=== PATIENT | female | born 1930 | race Caucasian/White ===

== ENCOUNTER 2018-01-30 02:42 | Emergency (ER) | payer BC, MEDICARE ==
[~2018-01-30] VITALS: Ht 142.2 cm; Wt 63.5 kg
[2018-01-30 02:48] VITALS: BP 171/75
== END 2018-01-30 03:39 | disposition home or self-care (01) ==
LOC: ER 02:46
DX: S00.03XA Contusion of scalp, initial encounter (principal); I10 Essential (primary) hypertension; Z90.710 Acquired absence of both cervix and uterus; Y04.2XXA Assault by strike against or bumped into by another person, initial encounter; Y93.89 Activity, other specified; Y92.098 Other place in other non-institutional residence as the place of occurrence of the external cause; Y99.8 Other external cause status
CPT/HCPCS: 70450-TC; A4606; Z7610

== ENCOUNTER 2020-08-28 15:18 | Inpatient (IN) | payer MEDICARE, BC ==
[~2020-08-28] VITALS: Ht 132.1 cm; Wt 64.0 kg
--- NOTE | 2020-08-28 15:25 | NUR ---
BIB RA 83 FROM HOME, WEAKNESS AND LOW BP OF 90/40, TO ER BED 10, HOOKED TO PLANNING MANAGER, BP CUFF AND POX. CHANGED TO HOSP GOWN, WARM BLANKET PROVIDED, PATIENT AAO x 4 , BREATHING EVEN AND UNLABORED, NAD NOTED. AWAITING MD BOLANOS.
--- NOTE | 2020-08-28 15:26 | NUR ---
DR BECKETT AT BEDSIDE
[2020-08-28] MEDS ORDERED: IV NS 0.9% 1,000 ML IV ONE (15:30)
[2020-08-28 16:55] LABS: BASOPHILS # (AUTO) 0.1 /CMM (0.0-0.2); BASOPHILS % (AUTO) 0.8 % (0.0-2.0); HEMATOCRIT 26 % (33-45); HEMOGLOBIN 7.9 g/dL (11.5-14.8); LYMPHOCYTES # (AUTO) 0.1 /CMM (0.8-4.8); MEAN CORPUSCULAR HGB CONC 31 g/dl (31.0-36.0); MEAN CORPUSCULAR VOLUME 94 fL (82-100); MONOCYTES % (AUTO) 0.5 % (2.0-12.0); NEUTROPHILS # (AUTO) 9.9 /CMM (1.8-8.9); NEUTROPHILS % (AUTO) 96.7 % (43.0-81.0); PLATELET COUNT (AUTO) 220 /CMM (150-450); RED BLOOD CELL COUNT(AUTO) 2.74 MIL/uL (4.0-5.2); WHITE BLOOD COUNT (AUTO) 10.3 K/uL (4.3-11.0)
[2020-08-28 17:33] LABS: ALANINE AMINOTRANSFERASE 31 U/L (12-78); ALKALINE PHOSPHATASE 183 U/L (46-116); ASPARTATE AMINOTRANSFERASE 57 U/L (15-37); B-TYPE NATRIURETIC PEPTIDE 26613 PG/ML (0-125); BILIRUBIN,TOTAL 0.4 mg/dL (0.2-1.0); CALCIUM, SERUM 7.2 mg/dL (8.5-10.1); CARBON DIOXIDE 13 mmol/L (21-32); CHLORIDE 104 mmol/L (98-107); CREATININE 4.6 mg/dL (0.6-1.3); GLUCOSE 65 mg/dL (74-106); POTASSIUM 4.9 mmol/L (3.5-5.1); SODIUM SERUM 137 mmol/L (136-145); TOTAL PROTEIN, SERUM 5.1 g/dL (6.4-8.2)
[2020-08-28 17:50] LABS: ALBUMIN 0.6 g/dL (3.4-5.0); UREA NITROGEN, BLOOD 89 mg/dL (7-18)
[2020-08-28] MEDS ORDERED: OLME40TA12 PO (17:53)
[2020-08-28] MEDS ORDERED: FERR325T23 PO (17:53)
[2020-08-28] MEDS ORDERED: RIVA10TA PO (17:53)
[2020-08-28] MEDS ORDERED: ESOM20CA32 PO (17:53)
[2020-08-28] MEDS ORDERED: CEFTRIAXONE 1GM BAG (ER ONLY) 1 GM/50 ML PIGGYBACK IV ONE (18:00)
--- NOTE | 2020-08-28 18:03 | NUR ---
[facility] CALLED [facility]AGED.
[2020-08-28] MEDS ORDERED: AZITHROMYCIN 500 MG in IV D5W 250 ML IV ONE (18:30)
[2020-08-28 18:35] LABS: BILIRUBIN,DIRECT 0.3 mg/dL (0.0-0.2)
[2020-08-28] MEDS ORDERED: CEFTRIAXONE 1GM BAG (ER ONLY) 50 ML IV ONE (18:41)
--- NOTE | 2020-08-28 18:55 | NUR ---
COVID 19 PCR SWAB DONE AND SENT TO LAB.
[2020-08-28] MEDS ORDERED: PANTOPRAZOLE 40 MG TABLET.DR PO PRN (19:00)
--- NOTE | 2020-08-28 19:17 | NUR ---
MD MADE AWARE OF BP. RECEIVED VERBAL ORDER OF 1L NS BOLUS. CARRIED OUT
[2020-08-28] MEDS ORDERED: ONDANSETRON HCL/PF 4 MG/2 ML VIAL IVP PRN (19:30)
[2020-08-28] MEDS ORDERED: MAGNESIUM HYDROXIDE 30 ML UDC PO PRN (19:30)
[2020-08-28] MEDS ORDERED: Z GUARD REMEDY 2 OZ OINT TP PRN (19:30)
[2020-08-28] MEDS ORDERED: MAG HYDROX/AL HYDROX/SIMETH 30 ML UDC PO PRN (19:30)
[2020-08-28] MEDS ORDERED: HYDROCODONE/APAP 5/325MG TABLET PO PRN (19:30)
[2020-08-28] MEDS ORDERED: IV NS 0.9% 500 ML BAG IV ONE (19:30)
[2020-08-28] MEDS ORDERED: HEPARIN INFUSION/D5W 500 ML IV PRN (19:30)
[2020-08-28] MEDS ORDERED: ACETAMINOPHEN 325 MG TABLET PO PRN (19:30)
--- NOTE | 2020-08-28 19:33 | NUR ---
REPORT GIVEN TO CHRIS WHITNEY FOR RAMY
[2020-08-28] MEDS: IV NS 0.9% 1,000 ML IV PRN (21:00)
[2020-08-28] MEDS ORDERED: ASPIRIN 325 MG TABLET ONE (21:32)
[2020-08-28] MEDS: ASPIRIN 325 MG TABLET PO SCH (21:35)
--- NOTE | 2020-08-28 21:52 | NUR ---
PT RESTING COMFORTABLY. VSS. PROVIDED WITH SOCKS, BLANKETS, AND A PILLOW. AWARE OF PLAN OF CARE. VSS.
[2020-08-28] MEDS: BLOOD SUGAR DIAGNOSTIC 1 EACH STRIP VI SCH (22:00)
--- NOTE | 2020-08-29 00:22 | NUR ---
PT ASLEEP NOW, PROVIDED WITH MORE BLANKETS. REPOSITIONED TO THE RIGHT.
--- NOTE | 2020-08-29 01:31 | NUR ---
PT ASLEEP, VSS.
--- NOTE | 2020-08-29 03:45 | NUR ---
PT ASLEEP, PROVIDED WITH BLANKETS.
--- NOTE | 2020-08-29 04:43 | NUR ---
MUSIC ENGINEER AT BEDSIDE.
[2020-08-29 05:23] LABS: BASOPHILS % (AUTO) 0.1 % (0.0-2.0); EOSINOPHILS % (AUTO) 0.8 % (0.0-6.0); HEMATOCRIT 23 % (33-45); HEMOGLOBIN 7.2 g/dL (11.5-14.8); LYMPHOCYTES # (AUTO) 0.2 /CMM (0.8-4.8); LYMPHOCYTES % (AUTO) 2.4 % (20.0-44.0); MEAN CORPUSCULAR HGB CONC 32 g/dl (31.0-36.0); MEAN CORPUSCULAR VOLUME 92 fL (82-100); MONOCYTES # (AUTO) 0.1 /CMM (0.1-1.30); MONOCYTES % (AUTO) 1.2 % (2.0-12.0); NEUTROPHILS # (AUTO) 8.5 /CMM (1.8-8.9); NEUTROPHILS % (AUTO) 95.5 % (43.0-81.0); PLATELET COUNT (AUTO) 203 /CMM (150-450); RED BLOOD CELL COUNT(AUTO) 2.46 MIL/uL (4.0-5.2); WHITE BLOOD COUNT (AUTO) 8.9 K/uL (4.3-11.0)
[2020-08-29 05:35] LABS: ALANINE AMINOTRANSFERASE 29 U/L (12-78); ALKALINE PHOSPHATASE 174 U/L (46-116); ASPARTATE AMINOTRANSFERASE 52 U/L (15-37); BILIRUBIN,DIRECT 0.2 mg/dL (0.0-0.2); BILIRUBIN,TOTAL 0.3 mg/dL (0.2-1.0); CALCIUM, SERUM 6.4 mg/dL (8.5-10.1); CARBON DIOXIDE 13 mmol/L (21-32); CHLORIDE 109 mmol/L (98-107); CREATININE 4.3 mg/dL (0.6-1.3); GLUCOSE 97 mg/dL (74-106); MAGNESIUM 1.3 mg/dL (1.8-2.4); PHOSPHORUS 6.8 mg/dL (2.5-4.9); POTASSIUM 4.7 mmol/L (3.5-5.1); SODIUM SERUM 138 mmol/L (136-145); TOTAL PROTEIN, SERUM 4.6 g/dL (6.4-8.2)
[2020-08-29 05:51] LABS: ALBUMIN 0.5 g/dL (3.4-5.0); UREA NITROGEN, BLOOD 85 mg/dL (7-18)
[2020-08-29 05:59] LABS: CHOLESTEROL 133 mg/dL (<200); HDL CHOLESTEROL 13 mg/dL (40-60); LDL 80 mg/dL (0-99); TRIGLYCERIDES 117 mg/dL (30-150)
[2020-08-29 06:02] LABS: IRON, SERUM 20 ug/dl (50-175); TOTAL IRON BINDING CAPACITY 53 ug/dl (250-450)
--- NOTE | 2020-08-29 06:44 | NUR ---
PT REPOSITIONED, PROVIDED WITH MORE BLANKETS AND PILLOW. VSS.
--- NOTE | 2020-08-29 07:45 | NUR ---
PATIENT A/OX4, BREATHING EVEN AND UNLABORED, NOS OB NOTED, NEEDS ATTENDED. NO DISTRESS NOTED.
[2020-08-29] MEDS: BLOOD SUGAR DIAGNOSTIC 1 EACH STRIP VI SCH ×4 (07:55→22:23)
[2020-08-29] MEDS: ASPIRIN 325 MG TABLET PO SCH (08:35)
[2020-08-29] MEDS ORDERED: RIVAROXABAN 10 MG TABLET PO SCH (09:00)
[2020-08-29] MEDS: IV NS 0.9% 1,000 ML IV PRN (12:05)
--- NOTE | 2020-08-29 12:30 | NUR ---
PATIENT ABLE TO EAT BREAKFAST AND LUNCH. NO DISTRESS NOTED.
[2020-08-29] MEDS: Magnesium 1GM/D5W 100ML PREMIX 100 ML IV SCH ×2 (12:35→13:40)
--- NOTE | 2020-08-29 18:21 | NUR ---
MARC HANNA MADE AWARE OF LOW BLOOD PRESSURE.
--- NOTE | 2020-08-29 19:43 | NUR ---
TOOK OVER PT CARE. PT REMAINS IN BED, RESTING COMFORTABLY. ON ACCOUNT RETENTION REPRESENTATIVE AND PULSE OX. VITALS STABLE. PT WAS PLACED ON 2L NC, NOW SAT 93-95%. PT WAS REPOSITIONED TO THE RIGHT. CALL LIGHT AT BEDSIDE. NO ACUTE DISTRESS NOTED. WILL CONTINUE TO MONITOR. PT AWARE OF PLAN OF CARE.
--- NOTE | 2020-08-29 20:43 | NUR ---
LAB CALLED REGARDING NEGATIVE COVID RESULT
[2020-08-29] MEDS ORDERED: HEPARIN SODIUM, PORCINE 5000 UNITS/1 ML VIAL ONE (21:30)
[2020-08-29] MEDS: HEPARIN SODIUM, PORCINE 5000 UNITS/1 ML VIAL SQ SCH (21:31)
--- NOTE | 2020-08-30 01:37 | NUR ---
PT RESTING COMFORTABLY, ON MONITOR AND PULSE OX. VSS.
--- NOTE | 2020-08-30 05:19 | NUR ---
PT RESTING COMFORTABLY. VSS. REMAINS ASLEEP.
[2020-08-30 05:31] LABS: CALCIUM, SERUM 6.9 mg/dL (8.5-10.1); CARBON DIOXIDE 13 mmol/L (21-32); CHLORIDE 110 mmol/L (98-107); CREATININE 4.5 mg/dL (0.6-1.3); GLUCOSE 78 mg/dL (74-106); POTASSIUM 4.6 mmol/L (3.5-5.1); SODIUM SERUM 140 mmol/L (136-145)
[2020-08-30 05:36] LABS: UREA NITROGEN, BLOOD 90 mg/dL (7-18)
--- NOTE | 2020-08-30 07:00 | NUR ---
PT ASLEEP, VSS.
--- NOTE | 2020-08-30 08:01 | NUR ---
interventional radiology rn at bedside for JORDEN
[2020-08-30] MEDS: BLOOD SUGAR DIAGNOSTIC 1 EACH STRIP VI SCH ×4 (08:31→22:10)
--- NOTE | 2020-08-30 09:27 | NUR ---
DR CROWE AT BEDSIDE
[2020-08-30] MEDS: ASPIRIN 325 MG TABLET PO SCH (09:46)
[2020-08-30] MEDS: HEPARIN SODIUM, PORCINE 5000 UNITS/1 ML VIAL SQ SCH (09:54)
[2020-08-30] MEDS: HYDROCORTISONE SOD SUCCINATE 100 MG/2 ML VIAL IV SCH ×2 (11:51→19:00)
--- NOTE | 2020-08-30 12:57 | NUR ---
PATIENT PROVIDED W LUNCH TRAY. TOLERATING PO WELL.
[2020-08-30] MEDS: SODIUM BICARBONATE 650 MG TABLET PO SCH ×2 (13:52→20:56)
--- NOTE | 2020-08-30 17:25 | NUR ---
MADE MARC HANNA AWARE OF PATIENT'S POSITIVE DVT AT RIGHT AND LEFT GSV, L CFV AND L SFV. AWAITING FURTHER ORDERS
--- NOTE | 2020-08-30 17:50 | NUR ---
SPOKE TO DR AU FOR PATIENT'S VENOUS DOPPLER REPORT.
--- NOTE | 2020-08-30 18:26 | NUR ---
CALL FROM JAKOB MONTERROSO, NO PLAN TO D/C PATIENT AT THIS TIME
[2020-08-30] MEDS: APIXABAN 5 MG TABLET PO SCH (19:00)
--- NOTE | 2020-08-30 19:41 | NUR ---
REPORT GIVEN TO CHRIS WHITNEY FOR RAMY
--- NOTE | 2020-08-30 19:47 | NUR ---
TOOK OVER PT CARE. PT REPOSITIONED, ON GANG RIPSAW OPERATOR, AND PULSE OX. WILL CONTINUE TO MONITOR.
[2020-08-30] MEDS ORDERED: HYDROCORTISONE SOD SUCCINATE 100 MG/2 ML VIAL ONE (20:08)
--- NOTE | 2020-08-30 22:02 | NUR ---
PATIENT HAD A BM. CHANGED BED SHEETS AND CHUCKS.
--- NOTE | 2020-08-30 22:29 | NUR ---
PT CLEANED AND REPOSITIONED, VSS.
--- NOTE | 2020-08-31 02:47 | NUR ---
PT REMAINS ASLEEP, ON MONITOR AND PULSE OX.
[2020-08-31] MEDS: HYDROCORTISONE SOD SUCCINATE 100 MG/2 ML VIAL IV SCH ×3 (03:11→20:56)
--- NOTE | 2020-08-31 04:05 | NUR ---
SPOKE TO YESENIA (PT'S DAUGHTER IN LAW) STATED TO HAVE THE MD TAKE A LOOK AT THE LEFT FOOT AND HAVE A WOUND CARE CONSULTATION. ALSO STATED LAST FRIDAY SHE HAD VITSITED A WOUND CENTER AND WAS TOLD TO COME BACK Friday08/29/2020.
--- NOTE | 2020-08-31 05:12 | NUR ---
PT CLEANED, PROVIDED WITH MORE BLANKETS, REPOSITIONED. VSS.
--- NOTE | 2020-08-31 06:32 | NUR ---
PT CLEANED, REPOSITIONED, REMAINS ON SHREDDING MACHINE TENDER, AND PULSE OX. VSS.
[2020-08-31] MEDS: IV NS 0.9% 1,000 ML IV PRN (07:00)
[2020-08-31] MEDS: BLOOD SUGAR DIAGNOSTIC 1 EACH STRIP VI SCH ×4 (07:31→23:54)
--- NOTE | 2020-08-31 07:40 | NUR ---
REPORT GIVEN TO BA WHITNEY FOR RAMY
[2020-08-31 08:10] LABS: BASOPHILS % (AUTO) 0.5 % (0.0-2.0); EOSINOPHILS % (AUTO) 0.1 % (0.0-6.0); HEMATOCRIT 23 % (33-45); HEMOGLOBIN 7.4 g/dL (11.5-14.8); LYMPHOCYTES # (AUTO) 0.2 /CMM (0.8-4.8); MEAN CORPUSCULAR HGB CONC 32 g/dl (31.0-36.0); MEAN CORPUSCULAR VOLUME 91 fL (82-100); MONOCYTES # (AUTO) 0.1 /CMM (0.1-1.30); MONOCYTES % (AUTO) 1.6 % (2.0-12.0); NEUTROPHILS # (AUTO) 7.8 /CMM (1.8-8.9); NEUTROPHILS % (AUTO) 95.8 % (43.0-81.0); PLATELET COUNT (AUTO) 161 /CMM (150-450); RED BLOOD CELL COUNT(AUTO) 2.53 MIL/uL (4.0-5.2); WHITE BLOOD COUNT (AUTO) 8.2 K/uL (4.3-11.0)
[2020-08-31] MEDS: SODIUM BICARBONATE 650 MG TABLET PO SCH ×2 (08:12→23:54)
[2020-08-31] MEDS: APIXABAN 5 MG TABLET PO SCH ×2 (08:12→17:00)
[2020-08-31] MEDS: ASPIRIN 325 MG TABLET PO SCH (08:12)
[2020-08-31 08:20] LABS: ALANINE AMINOTRANSFERASE 32 U/L (12-78); ALKALINE PHOSPHATASE 307 U/L (46-116); ASPARTATE AMINOTRANSFERASE 31 U/L (15-37); BILIRUBIN,TOTAL 0.3 mg/dL (0.2-1.0); CALCIUM, SERUM 7.3 mg/dL (8.5-10.1); CARBON DIOXIDE 13 mmol/L (21-32); CHLORIDE 110 mmol/L (98-107); CREATININE 4.7 mg/dL (0.6-1.3); GLUCOSE 106 mg/dL (74-106); MAGNESIUM 1.9 mg/dL (1.8-2.4); POTASSIUM 5.4 mmol/L (3.5-5.1); SODIUM SERUM 141 mmol/L (136-145)
[2020-08-31 09:00] LABS: UREA NITROGEN, BLOOD 100 mg/dL (7-18)
[2020-08-31 09:01] LABS: ALBUMIN 0.5 g/dL (3.4-5.0)
--- NOTE | 2020-08-31 09:10 | NUR ---
WOUND CARE CONSULT: PT PRESENTS WITH LEFT LOWER LEG WOUND AND INTACT DEEP TISSUE INJURY TO LEFT HEEL WITH REDNESS AND EDEMA TO ENTIRE LEFT LEG, PRESENT ON ADMISSION. RECOMMEND DPM CONSULT. DR SHI NOTIFIED OF CONSULT REQUEST. RECOMMENDATIONS MADE FOR SKIN PROTECTION. DISCUSSED WITH NURSING STAFF. COBAN WRAP WAS REMOVED BY WOUND NURSE (BANK CONSULTANT). PT NOTED TO BE INCONTINENT OF LOOSE STOOL. PT WAS CLEANSED WELL WITH SOAP AND WATER BY NURSING STAFF. IN AGREEMENT WITH PLAN OF CARE. Addendum: 08/31/20 at 0912 by JUAREZ OCONNOR WNDNU Amended: Links added.
--- NOTE | 2020-08-31 16:21 | NUR ---
PATIENT WILL GO TO RM 306-1
--- NOTE | 2020-08-31 17:00 | NUR ---
pt transferred to room 306, bedside report given to crow tucker for jeanie Addendum: 08/31/20 at [address] lucila hendrickson will place the dialysis cath when pt goes up to the room.
[2020-08-31 18:00] VITALS: BP 116/59
--- NOTE | 2020-08-31 18:30 | NUR ---
DR. MARC HANNA PLACED RIGHT GROIN HD CATH. Patient is resting in bed, A/O x4, showing no signs of acute distress sor SOB, saturating 92% on 4L NC. BP 116/59 HR 84. Will endorse to vice president of human resources for admitting process.
--- NOTE | 2020-08-31 20:51 | NUR ---
TELE/RN DURING SHIFT ROUNDING, PATIENT WAS IN BED AWAKE, ALERT, ORIENTED, COMFORTABLE, NO C/O PAIN, NO DISTRESS NOTED. S/P HD CATH PLACEMENT, BLEEDING AT HD CATH SITE NOTED, PRESSURE APPLIED AT SITE, REENFORCED THE DRESSING. NO BLEEDING NOTED AT THIS TIME, WILL MONITOR. ALL NEEDS ATTENDED AT THIS TIME.
[2020-08-31] MEDS ORDERED: SODIUM BICARBONATE 650 MG TABLET ONE (23:34)
--- NOTE | 2020-09-01 00:58 | NUR ---
TELE/RN PATIENT IS SLEEPING AT THIS TIME, APPEAR COMFORTABLE, NO SIGNS OF DISTRESS NOTED, CALL LIGHT IN REACH, WILL CONTINUE TO MONITOR.
[2020-09-01] MEDS: HYDROCORTISONE SOD SUCCINATE 100 MG/2 ML VIAL IV SCH ×3 (03:38→19:14)
[2020-09-01] MEDS: IV NS 0.9% 1,000 ML IV PRN ×2 (04:05→19:17)
[2020-09-01 06:06] LABS: COMPLEMENT C3, SERUM 70 mg/dL (82-167); COMPLEMENT C4, SERUM 10 mg/dL (12-38)
--- NOTE | 2020-09-01 07:28 | NUR ---
IMPROVEMENT ANALYST OPENING NOTES RECEIVED PT AWAKE IN BED IN NO ACUTE SIGNS OF DISTRESS NOTED. A/O X2. CALM, QUIET AT THIS TIME AND ABLE TO MAKE NEEDS KNOWN, DENIES PAIN OR ANY DISCOMFORTS. ON 02 VIA N/C AT 4LPM, TOLERATING WELL WITH NO SOB NOTED. HD CATH ON RIGHT GROIN IN PLACE WITH DRESSING C/D/I. EXTERNAL MONITOR SHOWS NSR WITH HR ON THE 70'S, NO C/O CARDIAC DISTRESS VOICED AT THIS TIME. IV ACCESS ON LAC G#20 INTACT AND PATENT WITH IVF OF NS RUNNING AT 75ML/HR, NO S/S OF INFILTRATION AT SITE NOTED. SAFETY MEASURES IN PLACE: BED IN LOWEST LOCKED POSITION WITH SR UP X2, BED ALARM ON AND CALL LIGHT W/IN EASY REACH. WILL CONTINUE TO MONITOR PT.
--- NOTE | 2020-09-01 07:37 | NUR ---
TELE/RN PATIENT IS AWAKE, ALERT, ORIENTED WITH CONFUSION, NO DISTRESS NOTED, ON AND OFF SLEEP NOTED THE WHOLE SHIFT, ALL NEEDS ATTENDED AT THIS TIME, ENDORSED TO NEXT RN FOR CONTINUITY OF CARE.
[2020-09-01] MEDS: BLOOD SUGAR DIAGNOSTIC 1 EACH STRIP VI SCH ×4 (07:43→21:15)
[2020-09-01 08:00] VITALS: BP 79/41
[2020-09-01] MEDS: ASPIRIN 325 MG TABLET PO SCH (08:38)
[2020-09-01] MEDS: APIXABAN 5 MG TABLET PO SCH ×2 (08:39→17:33)
[2020-09-01] MEDS: SODIUM BICARBONATE 650 MG TABLET PO SCH ×2 (09:55→21:14)
--- NOTE | 2020-09-01 11:18 | NUR ---
RN NOTES PT SEEN BY KRISS IZAGUIRRE, INFORMED HER THAT I ADMINISTERED MORPHINE 2MG IVP AT 0946. SHE SAID THAT ADMINISTER ANOTHER 2 MG IVP THEN SHE WILL PUT PT ON MORPHINE DRIP LATER. ORDER CARRIED OUT. WILL CONTINUE TO MONITOR.
[2020-09-01] MEDS: INSULIN REGULAR, HUMAN 100 UNIT/ML 3 ML VIAL SQ PRN ×2 (11:43→17:19)
[2020-09-01 12:00] VITALS: BP 135/44
--- NOTE | 2020-09-01 15:45 | NUR ---
RN NOTES PATIENT ON HEMODIALYSIS RIGHT TO RIGHT FEMORAL HD CATHETER.
[2020-09-01 16:00] VITALS: BP 102/77
[2020-09-01] MEDS ORDERED: ALBUMIN 25% 25 GM in PREMIX 1 EA IV PRN (16:00)
--- NOTE | 2020-09-01 18:15 | NUR ---
RN NOTES HEMODIALYSIS FINISHED AND TOLERATED WELL. NO OUTPUT MADE PER DIALYSIS NURSE. WILL CONTINUE TO MONITOR.
--- NOTE | 2020-09-01 18:54 | NUR ---
POLICE OFFICER CLOSING NOTES PT IN BED ASLEEP AT THIS TIME, EASILY AROUSABLE, HOB ELEVATED. A/O X2-3. ABLE TO MAKE NEEDS KNOWN. ON 02 VIA N/C AT 4LPM, TOLERATING WELL WITH NO SOB NOTED. HD CATH ON RIGHT GROIN IN PLACE WITH DRESSING C/D/I. EXTERNAL MONITOR SHOWS NSR WITH HR ON THE 70'S, NO C/O CARDIAC DISTRESS VOICED AT THIS TIME. IV ACCESS ON LAC G#20 INTACT AND PATENT WITH IVF OF NS RUNNING AT 75ML/HR, NO S/S OF INFILTRATION AT SITE NOTED. PT TURNED AND REPOSITIONED Q 2HRS AND PRN. ALL NEEDS AND CARE PROVIDED WELL. SAFETY MEASURES KEPT IN PLACE: BED IN LOWEST LOCKED POSITION WITH SR UP X2, BED ALARM ON AND CALL LIGHT W/IN EASY REACH. WILL ENDORSE TO BRICK MACHINE OPERATOR NURSE FOR RAMY.
[2020-09-01 20:00] VITALS: BP 129/77
[2020-09-02] VITALS (10 sets, daily range): BP systolic 85–112; BP diastolic 41–58
[2020-09-02] MEDS: HYDROCORTISONE SOD SUCCINATE 100 MG/2 ML VIAL IV SCH ×3 (02:41→21:51)
[2020-09-02] MEDS: BLOOD SUGAR DIAGNOSTIC 1 EACH STRIP VI SCH ×4 (06:31→22:08)
--- NOTE | 2020-09-02 06:40 | NUR ---
RN CLOSING NOTES Pt asleep on bed. No complaints made at this time. Medicated for pain, noted effective. Due meds given as ordered. Kept on bed clean, dry and comfortable. On fall and aspiration precautions. Endorsed.
--- NOTE | 2020-09-02 07:27 | NUR ---
KNITTING MACHINE OPERATOR OPENING NOTES RECEIVED PT IN BED AWAKE, A/O X2-3. ABLE TO MAKE NEEDS KNOWN, DENIES PAIN OR ANY DISCOMFORTS AT THIS TIME. ON 02 VIA N/C AT 4LPM, TOLERATING WELL WITH NO SOB NOTED. HD CATH ON RIGHT GROIN IN PLACE WITH DRESSING C/D/I. EXTERNAL MONITOR SHOWS NSR WITH HR ON THE 70'S, NO C/O CARDIAC DISTRESS VOICED AT THIS TIME. IV ACCESS ON LAC G#20 INTACT AND PATENT WITH IVF OF NS INFUSING @ 75ML/HR, NO S/S OF INFILTRATION AT SITE NOTED. SAFETY MEASURES IN PLACE: HOB KEPT ELEVATED. BED IN LOWEST LOCKED POSITION WITH SR UP X2, BED ALARM ON AND CALL LIGHT W/IN EASY REACH. WILL CONTINUE TO MONITOR PT ACCORDINGLY.
[2020-09-02 07:34] LABS: ALANINE AMINOTRANSFERASE 32 U/L (12-78); ALKALINE PHOSPHATASE 188 U/L (46-116); ASPARTATE AMINOTRANSFERASE 27 U/L (15-37); BILIRUBIN,TOTAL 0.4 mg/dL (0.2-1.0); CALCIUM, SERUM 7.5 mg/dL (8.5-10.1); CARBON DIOXIDE 22 mmol/L (21-32); CHLORIDE 107 mmol/L (98-107); CREATININE 2.6 mg/dL (0.6-1.3); GLUCOSE 96 mg/dL (74-106); MAGNESIUM 1.7 mg/dL (1.8-2.4); PHOSPHORUS 5.5 mg/dL (2.5-4.9); SODIUM SERUM 140 mmol/L (136-145); TOTAL PROTEIN, SERUM 4.6 g/dL (6.4-8.2); UREA NITROGEN, BLOOD 66 mg/dL (7-18)
[2020-09-02 07:36] LABS: ALBUMIN 1.1 g/dL (3.4-5.0)
[2020-09-02] MEDS: SODIUM BICARBONATE 650 MG TABLET PO SCH ×2 (08:31→21:57)
[2020-09-02] MEDS: ASPIRIN 325 MG TABLET PO SCH (08:31)
[2020-09-02] MEDS: APIXABAN 5 MG TABLET PO SCH (08:32)
[2020-09-02 09:06] LABS: BASOPHILS % (AUTO) 0.1 % (0.0-2.0); LYMPHOCYTES # (AUTO) 0.2 /CMM (0.8-4.8); LYMPHOCYTES % (AUTO) 2.5 % (20.0-44.0); MEAN CORPUSCULAR HGB CONC 33 g/dl (31.0-36.0); MEAN CORPUSCULAR VOLUME 90 fL (82-100); MONOCYTES # (AUTO) 0.1 /CMM (0.1-1.30); MONOCYTES % (AUTO) 2.1 % (2.0-12.0); NEUTROPHILS # (AUTO) 6.3 /CMM (1.8-8.9); NEUTROPHILS % (AUTO) 95.3 % (43.0-81.0); PLATELET COUNT (AUTO) 110 /CMM (150-450); RED BLOOD CELL COUNT(AUTO) 2.08 MIL/uL (4.0-5.2); WHITE BLOOD COUNT (AUTO) 6.6 K/uL (4.3-11.0)
[2020-09-02] MEDS: IV NS 0.9% 1,000 ML IV PRN (09:31)
[2020-09-02 09:40] LABS: HEMATOCRIT 19 % (33-45); HEMOGLOBIN 6.1 g/dL (11.5-14.8)
[2020-09-02] MEDS: Magnesium 1GM/D5W 100ML PREMIX 100 ML IV SCH ×2 (10:05→11:24)
--- NOTE | 2020-09-02 10:33 | NUR ---
RN NOTES RECEIVED CALL FROM PLOW AND BORING MACHINE TENDER [facility] THAT PT HAS LOW HGB 6.1 AND HCT 19, MADE AWARE WITH ORDER TO TRANSFUSED PRBC X1. CONSENT OBTAINED FROM PATIENT. WILL CARRY OUT ORDER.
[2020-09-02] MEDS: *INSULIN REGULAR(HUMULIN R)HUM 100 UNIT/ML VIAL SQ PRN (12:10)
[2020-09-02] MEDS ORDERED: EPOETIN ALFA (20,000 UNIT) 20,000 UNIT/ML VIAL SQ ONE (13:00)
[2020-09-02 13:08] LABS: *ANA ANTI-CENTROMERE B AB <0.2 AI (0.0-0.9); *ANA ANTI-DNA(DS) AB, QN <1 IU/mL (0-9); *ANA ANTI-JO-1 <0.2 AI (0.0-0.9); *ANA ANTICHROMATIN ANTIBODY 0.4 AI (0.0-0.9); *ANA RNP ANTIBODIES 0.2 AI (0.0-0.9); *ANA SJOGREN'S ANTI-SS-A <0.2 AI (0.0-0.9); *ANA SJOGREN'S ANTI-SS-B <0.2 AI (0.0-0.9); *ANAANTI-SCLERODERMA-70 AB <0.2 AI (0.0-0.9); *ANASMITH AB <0.2 AI (0.0-0.9)
[2020-09-02 13:28] LABS: LYMPHOCYTES % (MANUAL) 5 % (16-48); MONOCYTES % (MANUAL) 1 % (0-11.0); NEUTROPHILS % (MANUAL) 94 (42-76)
--- NOTE | 2020-09-02 15:30 | NUR ---
RN NOTES PT WITH HGB 6.1 TODAY. EPOGEN 20,000U ADMINISTERED SQ ORDERED. WILL CONTINUE TO MONITOR.
--- NOTE | 2020-09-02 15:42 | NUR ---
RN NOTES TYPE AND SCREEN DONE THIS MORNING. CALLED BLOOD BANK THIS AFTERNOON AND SPOKE TO JOSEF TO F/U WITH RBC UNITS. SHE STATED THAT THEY ARE STILL WAITING FOR THE 2ND BLOOD TYPE.
[2020-09-02] MEDS: APIXABAN 2.5 MG TABLET PO SCH (17:00)
--- NOTE | 2020-09-02 17:24 | NUR ---
RN NOTES BLOOD TRANSFUSION OF PRBC X1 STARTED VIA IV ACCESS ON LAC AND WAS VERIFIED BY ANOTHER RN VANDANA. PRE BLOOD TRANSFUSION V/S : BP 93/47, P 85, R 18 AND T 97.8F. WILL MONITOR FOR ANY ALLERGIC/ADVERSE REACTIONS.
[2020-09-02] MEDS: INSULIN REGULAR, HUMAN 100 UNIT/ML 3 ML VIAL SQ PRN (17:29)
--- NOTE | 2020-09-02 17:35 | NUR ---
RN NOTES PATIENT WITH NO ALLERGIC/ADVERSE REACTIONS NOTED AFTER 15MINUTES OF STARTING BLOOD TRANSFUSION. V/S CHEEKED AND RECORDED. WILL CONTINUE TO MONITOR.
--- NOTE | 2020-09-02 18:46 | NUR ---
MS RN CLOSING NOTES PT IN BED AWAKE AND LYING AT MODERATE HIGH BACKREST POSITION. A/O X 3. ABLE TO MAKE NEEDS KNOWN. ON 02 VIA N/C AT 4LPM, TOLERATING WELL WITH NO SOB NOTED DURING SHIFT. BLOOD TRANSFUSION ONGOING VIA LAC G#20 IV ACCESS, NO S/S OF INFILTRATION AT SITE NOTED. HD CATH ON RIGHT GROIN IN PLACE WITH DRESSING C/D/I. PT TURNED AND REPOSITIONED Q 2HRS AND PRN. ALL DUE NURSING CARE DONE AND MET. SAFETY MEASURES KEPT IN PLACE: BED IN LOWEST LOCKED POSITION WITH SR UP X2, BED ALARM ON AND CALL LIGHT W/IN EASY REACH. WILL ENDORSE TO VICTIM ADVOCATE NURSE FOR RAMY.
--- NOTE | 2020-09-02 19:40 | NUR ---
MS RN OPENING NOTES RECEIVED PT IN BED AWAKE, A/O X3. ABLE TO MAKE NEEDS KNOWN, DENIES PAIN OR ANY DISCOMFORTS AT THIS TIME. ON 02 VIA N/C AT 4LPM, TOLERATING WELL WITH NO SOB NOTED. HD CATH ON RIGHT GROIN IN PLACE WITH DRESSING C/D/I. HEMODIALYSIS GOING ON AT THIS TIME, NO C/O CARDIAC DISTRESS VOICED AT THIS TIME. IV ACCESS ON LAC G#20 INTACT AND PATENT. NO S/S OF INFILTRATION AT SITE NOTED. SAFETY MEASURES IN PLACE: HOB KEPT ELEVATED. BED IN LOWEST LOCKED POSITION WITH SR UP X2, BED ALARM ON AND CALL LIGHT W/IN EASY REACH. WILL CONTINUE TO MONITOR PT ACCORDINGLY.
--- NOTE | 2020-09-02 20:19 | NUR ---
MS RN NOTE PATIENT IS HAVING HEMODIALYSIS, WILL GIVE SOLU CORTEF ONCE DIALYSIS IS FINISHED.
--- NOTE | 2020-09-02 20:45 | NUR ---
MS RN NOTE PATIENT WAS ON BLOOD TRANSFUSION X 1 BAG, HEMODIALYSIS TECH IS HERE & SHE CONTINUED BLOOD TRANSFUSION VIA HD, PATIENT TOLERATED WELL. A & O X 3, NO CHANGES VERBALIZED BY THE PATIENT AT THIS TIME. CONTINUING TO MONITOR FOR ANY RAMY.
--- NOTE | 2020-09-02 21:45 | NUR ---
MS RN NOTE HEMODIALYSIS IN DONE WITH NO OUTPUT, PATIENT'S VITALS ARE 104/55, 91, 18, 97.8, 96%, ON O2 @ 3-4 LPM VIA NC. PATIENT TOLERATED HD WELL. NO ACUTE CHANGES NOTED. WILL CONTINUE TO MONITOR.
--- NOTE | 2020-09-02 22:10 | NUR ---
MS RN NOTE APPLE JUICE GIVEN TO THE PATIENT & TOLERATED WELL.
--- NOTE | 2020-09-02 22:52 | NUR ---
MS RN NOTE PATIENT HAS STAT ORDER FOR LEUKOCYTE STOOL, BUT PATIENT STATED," I DON'T FEEL LIKE GOING AT THIS TIME, MAY BE LATER." PATIENT IS A & O X 3, REFUSES TO COLLECT STOOL BY USING OTHER METHODS & WANTS THE NURSE TO WAIT UNTIL SHE HAS BM ON HER OWN. WILL CONTINUE TO MONITOR & WILL COLLECT THE STOOL SPECIMEN ONCE PATIENT HAS BM.
[2020-09-03] MEDS: HYDROCORTISONE SOD SUCCINATE 100 MG/2 ML VIAL IV SCH ×3 (03:52→20:03)
--- NOTE | 2020-09-03 06:08 | NUR ---
mMS RN NOTE PATIENT DID NOT HAVE BM THROUGH OUT THE NIGHT, WILL ENDORSE TO AM RN TO COLLECT STOOL SPECIMEN ONCE PATIENT HAS BM.
--- NOTE | 2020-09-03 06:49 | NUR ---
MS RN NOTE PATIENT'S BS IS 131 MG/DL, PATIENT REFUSED TO GET INSULIN 2 UNITS AT THIS TIME CONCERNED ABOUT BEING HYPOGLYCEMIC AFTER GETTING INSULIN. DESPITE OF RISKS & BENEFITS EXPLANATIONS, PATIENT CONTINUED TO REFUSE INSULIN AT THIS TIME. WILL ENDORSE TO AM RN FOR CONTINUITY OF CARE.
[2020-09-03] MEDS: BLOOD SUGAR DIAGNOSTIC 1 EACH STRIP VI SCH ×4 (06:52→22:14)
--- NOTE | 2020-09-03 07:03 | NUR ---
MS RN NOTE PATIENT IS A & O X 2-3, IN STABLE CONDITION, NO ACUTE CHANGES NOTED THROUGH OUT THE SHIFT. ADL CARE PROVIDED. WILL ENDORSE TO AM RN FOR CONTINUITY OF CARE.
[2020-09-03 08:00] VITALS: BP 114/50
[2020-09-03 08:20] LABS: HEMATOCRIT 23 % (33-45); HEMOGLOBIN 7.5 g/dL (11.5-14.8); LYMPHOCYTES # (AUTO) 0.1 /CMM (0.8-4.8); LYMPHOCYTES % (AUTO) 1.7 % (20.0-44.0); MEAN CORPUSCULAR HGB CONC 33 g/dl (31.0-36.0); MEAN CORPUSCULAR VOLUME 89 fL (82-100); MONOCYTES # (AUTO) 0.1 /CMM (0.1-1.30); MONOCYTES % (AUTO) 1.6 % (2.0-12.0); NEUTROPHILS # (AUTO) 6.8 /CMM (1.8-8.9); NEUTROPHILS % (AUTO) 96.7 % (43.0-81.0); PLATELET COUNT (AUTO) 102 /CMM (150-450); RED BLOOD CELL COUNT(AUTO) 2.57 MIL/uL (4.0-5.2)
[2020-09-03] MEDS: APIXABAN 2.5 MG TABLET PO SCH ×2 (09:00→17:47)
[2020-09-03 09:05] LABS: ALANINE AMINOTRANSFERASE 46 U/L (12-78); ALKALINE PHOSPHATASE 182 U/L (46-116); ASPARTATE AMINOTRANSFERASE 47 U/L (15-37); BILIRUBIN,TOTAL 0.5 mg/dL (0.2-1.0); CALCIUM, SERUM 7.8 mg/dL (8.5-10.1); CARBON DIOXIDE 27 mmol/L (21-32); CHLORIDE 106 mmol/L (98-107); GLUCOSE 129 mg/dL (74-106); MAGNESIUM 1.9 mg/dL (1.8-2.4); PHOSPHORUS 4.2 mg/dL (2.5-4.9); POTASSIUM 4.1 mmol/L (3.5-5.1); SODIUM SERUM 139 mmol/L (136-145); TOTAL PROTEIN, SERUM 4.7 g/dL (6.4-8.2); UREA NITROGEN, BLOOD 51 mg/dL (7-18)
[2020-09-03] MEDS: ASPIRIN 325 MG TABLET PO SCH (09:56)
[2020-09-03] MEDS: SODIUM BICARBONATE 650 MG TABLET PO SCH ×2 (09:56→21:17)
--- NOTE | 2020-09-03 09:56 | NUR ---
RN NOTES NOTED BLEEDING IN ORAL CAVITY HELD ELIQUIS, PO 2.5 mg ORDERED, CHARGE NURSE MADE AWARE, AND WILL CONTINUE TO MONITOR PATIENT.
[2020-09-03 16:00] VITALS: BP 114/62
--- NOTE | 2020-09-03 19:30 | NUR ---
MS RN OPENING NOTES RECEIVED PATIENT IN BED ALERT AND ORIENTED X 2. VERBALLY RESPONSIVE AND ABLE TO FOLLOW DIRECTIONS. BREATHING REGULAR AND UNLABORED ON OXYGEN AT 4L/MIN VIA NASAL CANNULA. LEFT AC G20 IV LINE INTACT AND PATENT, FLUSHING WELL. NO S/S OF PAIN/DISCOMFORT NOTED AT THIS TIME. BED LOW AND LOCKED ON SEMI FOWLERS POSITION. CALL LIGHT IN REACH. WILL CONTINUE TO MONITOR.
--- NOTE | 2020-09-03 19:42 | NUR ---
RN CLOSING NOTES PATIENT IN BED RESTING COMFORTABLY, ALERT AND ORIENTED X 2-3. ON NASAL CANNULA, 4 LITERS TOLERATING WELL WITH NO RESPIRATORY DISTRESS AT THIS TIME. MET ALL OF PATIENT'S NEEDS. IV ACCESS INTACT AND PATENT. PATIENT PRESENTING WITH NO PAIN OR DISCOMFORT AT THIS TIME. SAFETY PRECAUTIONS IMPLEMENTED WITH BED LOCKED, BILATERAL SIDE RAILS UP, BED ALARM ON, AND CALL LIGHT WITHIN EASY REACH WILL ENDORSE PLAN OF CARE TO UPCOMING RN.
[2020-09-03 20:00] VITALS: BP 118/61
[2020-09-04] MEDS: HYDROCORTISONE SOD SUCCINATE 100 MG/2 ML VIAL IV SCH ×3 (03:13→19:20)
[2020-09-04 06:02] LABS: HEMATOCRIT 24 % (33-45); HEMOGLOBIN 7.8 g/dL (11.5-14.8); LYMPHOCYTES # (AUTO) 0.2 /CMM (0.8-4.8); LYMPHOCYTES % (AUTO) 2.1 % (20.0-44.0); MEAN CORPUSCULAR HGB CONC 33 g/dl (31.0-36.0); MEAN CORPUSCULAR VOLUME 91 fL (82-100); MONOCYTES # (AUTO) 0.2 /CMM (0.1-1.30); MONOCYTES % (AUTO) 1.8 % (2.0-12.0); NEUTROPHILS # (AUTO) 7.9 /CMM (1.8-8.9); NEUTROPHILS % (AUTO) 96.1 % (43.0-81.0); PLATELET COUNT (AUTO) 112 /CMM (150-450); RED BLOOD CELL COUNT(AUTO) 2.61 MIL/uL (4.0-5.2); WHITE BLOOD COUNT (AUTO) 8.2 K/uL (4.3-11.0)
[2020-09-04 06:21] LABS: ALANINE AMINOTRANSFERASE 51 U/L (12-78); ALKALINE PHOSPHATASE 173 U/L (46-116); ASPARTATE AMINOTRANSFERASE 51 U/L (15-37); BILIRUBIN,TOTAL 0.5 mg/dL (0.2-1.0); CALCIUM, SERUM 8.6 mg/dL (8.5-10.1); CARBON DIOXIDE 28 mmol/L (21-32); CHLORIDE 106 mmol/L (98-107); CREATININE 1.7 mg/dL (0.6-1.3); GLUCOSE 114 mg/dL (74-106); MAGNESIUM 1.9 mg/dL (1.8-2.4); PHOSPHORUS 3.7 mg/dL (2.5-4.9); POTASSIUM 4.3 mmol/L (3.5-5.1); SODIUM SERUM 139 mmol/L (136-145); TOTAL PROTEIN, SERUM 4.7 g/dL (6.4-8.2); UREA NITROGEN, BLOOD 44 mg/dL (7-18)
[2020-09-04] MEDS: INSULIN REGULAR, HUMAN 100 UNIT/ML 3 ML VIAL SQ PRN (06:39)
[2020-09-04] MEDS: BLOOD SUGAR DIAGNOSTIC 1 EACH STRIP VI SCH ×4 (06:39→22:26)
--- NOTE | 2020-09-04 06:50 | NUR ---
MS RN CLOSING NOTES PATIENT IN BED, ALERT AND ORIENTED X 2-3. AFEBRILE WITH NO S/S OF DISTRESS OBSERVED. WILL ENDORSE TO MORNING SHIFT FOR CONTINUITY OF CARE.
--- NOTE | 2020-09-04 07:40 | NUR ---
RN OPENING NOTES RECEIVED PATIENT IN BED ALERT AND ORIENTED X 2- 3. ON NASAL CANNULA 4 LITERS WITH BREATHING REGULAR AND UNLABORED. IV ACCESS INTACT AND PATENT. SKIN WARM AND DRY TO TOUCH. PATIENT DENIES ANY PAIN/DISCOMFORT AT THIS TIME. SAFETY PRECAUTIONS IMPLEMENTED WITH BED LOCKED, BED IN THE LOWEST POSITION, IN SEMI FOWLERS POSITION AND CALL LIGHT WITHIN REACH. WILL CONTINUE TO MONITOR.
[2020-09-04 08:00] VITALS: BP 126/59
[2020-09-04] MEDS: ASPIRIN 325 MG TABLET PO SCH (09:02)
[2020-09-04] MEDS: SODIUM BICARBONATE 650 MG TABLET PO SCH ×2 (09:02→22:27)
[2020-09-04] MEDS: APIXABAN 2.5 MG TABLET PO SCH ×2 (09:03→16:59)
[2020-09-04 10:07] LABS: *ANCANTIPROTEINASE 3 (PR-3) AB <3.5 U/mL (0.0-3.5)
[2020-09-04 11:58] LABS: BILIRUBIN,URINE SMALL (NEGATIVE); COLOR,URINE AMBER (YELLOW); LEUKOCYTE ESTERASE ,URINE NEGATIVE (NEGATIVE); NITRITE, URINE NEGATIVE (NEGATIVE); PH,URINE 5.5 (5.0-8.0); PROTEIN,URINE >=300 mg/dl (NEGATIVE); UGLUCOSE NEGATIVE (NEGATIVE); UROBILINOGEN,URINE 0.2 EU/dL (0.2)
--- NOTE | 2020-09-04 12:00 | NUR ---
MS RN NOTES INFORMED HOSPITALIST ABOUT URINE OUTPUT OF 800 CC WITH STRAIGHT CATHETER, ADVISED TO INSERT SUBRAMANIAN AND MONITOR OUTPUT. WILL CARRY OUT ORDERS AND CONTINUE TO MONITOR PATIENT.
[2020-09-04 12:27] LABS: *ANCANTIMYELOPEROXIDASE (MPO) <9.0 U/mL (0.0-9.0)
[2020-09-04 12:49] LABS: BACTERIA,URINE Few /HPF (None Seen); SQUAMOUS EPITHELIAL CELL,UR Few /HPF (None Seen)
[2020-09-04 16:00] VITALS: BP 129/61
[2020-09-04] MEDS ORDERED: NEPRO VAN 237 ML CAN PO PRN (17:00)
--- NOTE | 2020-09-04 17:08 | NUR ---
RN NOTES NOTED SOME DRY BLOOD IN ORAL CAVITY, INFORMED HOSPITALIST MARC HANNA DNP, STATES TO ADMINISTER ELIQUIS, PO 2.5 mg ORDERED. WILL CONTINUE TO MONITOR PATIENT.
--- NOTE | 2020-09-04 20:26 | NUR ---
MS/TELE/RN PATIENT IS AWAKE, ALERT, ORIENTED, COMFORTABLE, NO C/O PAIN, NO SIGNS OF DISTRESS NOTED, PATIENT IS TALKING TO A FAMILY MEMBER ON THE PHONE AT THIS TIME, CALL LIGHT IN REACH, WILL MONITOR.
[2020-09-04 21:26] VITALS: BP 105/72
--- NOTE | 2020-09-05 02:21 | NUR ---
MS/TELE/RN PATIENT IS SLEEPING AT THIS TIME, APPEAR COMFORTABLE, NO SIGNS OF DISTRESS NOTED, CALL LIGHT IN REACH, WILL CONTINUE TO MONITOR.
[2020-09-05] MEDS: HYDROCORTISONE SOD SUCCINATE 100 MG/2 ML VIAL IV SCH ×3 (03:07→19:05)
--- NOTE | 2020-09-05 06:05 | NUR ---
MS/TELE/RN PATIENT IS AWAKE, COMFORTABLE, NO DISTRESS NOTED, CALL LIGHT IN REACH, ALL NEEDS ATTENDED AT THIS TIME, WILL CONTINUE TO MONITOR.
[2020-09-05 06:07] LABS: BASOPHILS % (AUTO) 0.3 % (0.0-2.0); HEMATOCRIT 24 % (33-45); HEMOGLOBIN 7.7 g/dL (11.5-14.8); LYMPHOCYTES % (AUTO) 2.5 % (20.0-44.0); MEAN CORPUSCULAR HGB CONC 32 g/dl (31.0-36.0); MEAN CORPUSCULAR VOLUME 94 fL (82-100); MONOCYTES % (AUTO) 1.3 % (2.0-12.0); NEUTROPHILS % (AUTO) 95.9 % (43.0-81.0); PLATELET COUNT (AUTO) 131 /CMM (150-450); RED BLOOD CELL COUNT(AUTO) 2.54 MIL/uL (4.0-5.2); WHITE BLOOD COUNT (AUTO) 10.3 K/uL (4.3-11.0)
[2020-09-05 06:08] LABS: LYMPHOCYTES # (AUTO) 0.3 /CMM (0.8-4.8); MONOCYTES # (AUTO) 0.1 /CMM (0.1-1.30); NEUTROPHILS # (AUTO) 9.9 /CMM (1.8-8.9)
[2020-09-05 06:26] LABS: CALCIUM, SERUM 7.9 mg/dL (8.5-10.1); CARBON DIOXIDE 25 mmol/L (21-32); CHLORIDE 106 mmol/L (98-107); CREATININE 2.4 mg/dL (0.6-1.3); GLUCOSE 113 mg/dL (74-106); PHOSPHORUS 4.6 mg/dL (2.5-4.9); POTASSIUM 4.6 mmol/L (3.5-5.1); SODIUM SERUM 138 mmol/L (136-145); UREA NITROGEN, BLOOD 74 mg/dL (7-18)
[2020-09-05] MEDS: BLOOD SUGAR DIAGNOSTIC 1 EACH STRIP VI SCH ×4 (06:34→21:31)
[2020-09-05 08:00] VITALS: BP 95/54
--- NOTE | 2020-09-05 08:09 | NUR ---
RN OPENING NOTE PATIENT IS IN BED RESTING COMFORTABLY. PATIENT IS IN NO ACUTE DISTRESS. PATIENTS BREATHING IS EVEN AND UNLABORED. PATIENT IS ON NASAL CANNULA ON 4L. PATIENT BED ALARM IS ON. SAFETY PRECAUTION IN PLACE. HOB ELEVATED. PATIENTS BED IS LOCKED IN THE LOWEST POSITION. CALL LIGHT WITHIN REACH. WILL CONTINUE TO MONITOR.
[2020-09-05] MEDS: ASPIRIN 325 MG TABLET PO SCH (09:16)
[2020-09-05] MEDS: SODIUM BICARBONATE 650 MG TABLET PO SCH ×2 (09:16→21:31)
[2020-09-05] MEDS: APIXABAN 2.5 MG TABLET PO SCH (09:18)
[2020-09-05 12:00] VITALS: BP 96/61
[2020-09-05] MEDS: INSULIN REGULAR, HUMAN 100 UNIT/ML 3 ML VIAL SQ PRN (14:11)
[2020-09-05] MEDS ORDERED: HEPARIN INFUSION/D5W 500 ML IV PRN (15:00)
[2020-09-05 16:00] VITALS: BP 94/63
--- NOTE | 2020-09-05 18:55 | NUR ---
RN CLOSING NOTE PATIENT IS IN BED RESTING COMFORTABLY. PATIENT IS ON OXYGEN NC ON 4L. HOB ELEVATED. PATIENT KEPT CLEAN DRY, AND COMFORTABLE THROUGHOUT THE SHIFT. WOUND CARE PROVIDED ORDERED. CALL LIGHT WITHIN REACH. BED IS IN THE LOWEST POSITION WITH SIDES RAILS UP. ENDORSE TO HEALTHCARE INTERPRETER NURSE FOR RAMY.
--- NOTE | 2020-09-05 19:30 | NUR ---
MS RN NOTE: PATIENT RESTING IN BED, NO ACUTE DISTRESS NOTED. BREATHING EVEN AND UNLABORED, NO SOB NOTED. SUBRAMANIAN IN PLACE, EMPTY AT THIS TIME. PATIENT RECEIVING HD AT THIS TIME. BED LOCKED AND IN LOWEST POSITION, CALL LIGHT IN REACH. WILL CONTINUE TO MONITOR.
--- NOTE | 2020-09-05 20:30 | NUR ---
MS RN NOTE: NOTED THAT THERE WAS AN ORDER ENTERED BY DR. ARELLANO THAT PATIENT TO HAVE CT GUIDE RENAL BIOPSY FOR TOMORROW. CLARIFIED WITH MARC HANNA IF WE ARE TO CONTINUE WITH HEPARIN DRIP ORDERED. PER MARC HANNA, TO HOLD HEPARIN DRIP AT THIS TIME. WILL CONTINUE TO MONITOR.
--- NOTE | 2020-09-06 00:10 | NUR ---
MS WHITNEY NOTE: PATIENT TO BE NPO FOR CT GUIDED RENAL BIOPSY, WATER AND SNACKS OFFERED TO PATIENT. WATER REMOVED FROM BEDSIDE.WILL CONTINUE TO MONITOR. Addendum: 09/06/20 at 0641 by ADILENE ALCANTARA RN FAMILY WANTS TO SPEAK TO DR. ARELLANO BEFORE SIGNING CONSENT FOR BIOPSY, AWARE AND WILL CONTACT FAMILY.
[2020-09-06] MEDS: HYDROCORTISONE SOD SUCCINATE 100 MG/2 ML VIAL IV SCH ×3 (03:44→19:09)
[2020-09-06 06:30] LABS: BASOPHILS % (AUTO) 0.1 % (0.0-2.0); HEMATOCRIT 24 % (33-45); HEMOGLOBIN 7.5 g/dL (11.5-14.8); LYMPHOCYTES # (AUTO) 0.4 /CMM (0.8-4.8); LYMPHOCYTES % (AUTO) 3.6 % (20.0-44.0); MEAN CORPUSCULAR HGB CONC 32 g/dl (31.0-36.0); MEAN CORPUSCULAR VOLUME 95 fL (82-100); MONOCYTES # (AUTO) 0.2 /CMM (0.1-1.30); MONOCYTES % (AUTO) 1.5 % (2.0-12.0); NEUTROPHILS # (AUTO) 10.3 /CMM (1.8-8.9); NEUTROPHILS % (AUTO) 94.8 % (43.0-81.0); PLATELET COUNT (AUTO) 162 /CMM (150-450); RED BLOOD CELL COUNT(AUTO) 2.51 MIL/uL (4.0-5.2); WHITE BLOOD COUNT (AUTO) 10.8 K/uL (4.3-11.0)
--- NOTE | 2020-09-06 06:30 | NUR ---
MS RN NOTE: PATIENT RESTING IN BED, NO ACUTE DISTRESS NOTED. BREATHING EVEN AND UNLABORED, NO SOB NOTED. SUBRAMANIAN IN PLACE. PATIENT BLOOD SUGAR LEVEL 82MG/DL, NO INSULIN NEEDED PER SLIDING SCALE. NO S/S OF HYPER/HYPOGLYCEMIA NOTED. BED LOCKED AND IN LOWEST POSITION, CALL LIGHT IN REACH. WILL ENDORSE TO DAY NURSE TO CONTINUE WITH PLAN OF CARE.
[2020-09-06] MEDS: BLOOD SUGAR DIAGNOSTIC 1 EACH STRIP VI SCH ×4 (06:40→22:20)
[2020-09-06 07:02] LABS: CALCIUM, SERUM 8.3 mg/dL (8.5-10.1); CARBON DIOXIDE 28 mmol/L (21-32); CHLORIDE 105 mmol/L (98-107); CREATININE 2.1 mg/dL (0.6-1.3); GLUCOSE 106 mg/dL (74-106); MAGNESIUM 1.9 mg/dL (1.8-2.4); PHOSPHORUS 4.2 mg/dL (2.5-4.9); POTASSIUM 4.5 mmol/L (3.5-5.1); SODIUM SERUM 138 mmol/L (136-145); UREA NITROGEN, BLOOD 60 mg/dL (7-18)
--- NOTE | 2020-09-06 07:30 | NUR ---
MS/RN OPENING NOTE Received patient resting in bed, A&O x 2. No complaints of pain and discomfort at this time. Breathing even and non-labored on 4L oxygen via NC. No cardiac distress noted. IV access noted on LAC #20g, patent and intact, and flushing well. Briscoe in place, draining clear jese urine well. Bed locked to its lowest position, side rails x 2 up, call light in hand. Will continue with current medical management.
[2020-09-06 08:00] VITALS: BP 98/52
[2020-09-06] MEDS: SODIUM BICARBONATE 650 MG TABLET PO SCH ×2 (08:20→20:34)
[2020-09-06 13:07] LABS: *ANCA ATYPICAL p-ANCA <1:20 titer (Neg:<1:20); *ANCA CYTOPLASMIC (C-ANCA) <1:20 titer (Neg:<1:20); *ANCA PERINUCLEAR (P-ANCA) <1:20 titer (Neg:<1:20)
[2020-09-06 16:00] VITALS: BP 104/48
--- NOTE | 2020-09-06 16:00 | NUR ---
MS/RN NOTE Radiology called, stated that patient won't be able to have renal biopsy until Friday since it takes 4 days for eliquis to be out of the system. Patient was last reported to take eliquis yesterday. Notified Dr. Peterson.
--- NOTE | 2020-09-06 17:30 | NUR ---
MS/RN NOTE Radiology called, stated that patient won't be able to have renal biopsy until Friday since it takes 4 days for eliquis to be out of the system. Meanwhile, they stated that heparin only stays in the system within 6 hrs. Patient was last reported to take eliquis yesterday. Notified Dr. Peterson. Ordered to continue heparin drip and change to cardiac diet. Orders carried out.
--- NOTE | 2020-09-06 17:45 | NUR ---
MS/RN NOTE Ordered stat PTT and PT with INR to start heparin drip.
--- NOTE | 2020-09-06 19:30 | NUR ---
MS/RN NOTE Clarified Heparin drip order, per Dr. Peterson, do not give bolus, resume heparin infusion following non ACS protocol based on pt w/INR and aptt results. Order carried out. Awaiting for new heparin drip label from pharmacy.
[2020-09-06 20:00] VITALS: BP 138/78
[2020-09-06] MEDS: HEPARIN INFUSION/D5W 500 ML IV PRN (21:15)
--- NOTE | 2020-09-06 21:15 | NUR ---
MS/RN NOTE Received new heparin drip label from pharmacy. Started heparin drip based on non ACS protocol with the initial infusion of 1150u/hr (23 ml/hr), co-signed with Ledy WHITNEY.
--- NOTE | 2020-09-06 23:24 | NUR ---
MS/RN NOTE Patient resting in bed, A&O x 2. No complaints of pain and discomfort at this time. Breathing even and non-labored on 4L oxygen via NC. No cardiac distress noted. IV access noted on LAC #20g, patent and intact, and running heparin drip at 1150 u/hr. Briscoe in place, draining clear jese urine well. Fall precautions maintained. Endorsed to Mona WHITNEY for RAMY.
[2020-09-07 04:07] LABS: BASOPHILS % (AUTO) 0.2 % (0.0-2.0); LYMPHOCYTES # (AUTO) 0.4 /CMM (0.8-4.8); LYMPHOCYTES % (AUTO) 2.9 % (20.0-44.0); MEAN CORPUSCULAR HGB CONC 32 g/dl (31.0-36.0); MEAN CORPUSCULAR VOLUME 94 fL (82-100); MONOCYTES # (AUTO) 0.2 /CMM (0.1-1.30); MONOCYTES % (AUTO) 1.3 % (2.0-12.0); NEUTROPHILS % (AUTO) 95.6 % (43.0-81.0); PLATELET COUNT (AUTO) 195 /CMM (150-450); WHITE BLOOD COUNT (AUTO) 12.6 K/uL (4.3-11.0)
[2020-09-07 04:12] LABS: HEMATOCRIT 19 % (33-45)
[2020-09-07 04:14] LABS: CALCIUM, SERUM 7.6 mg/dL (8.5-10.1); CARBON DIOXIDE 25 mmol/L (21-32); CHLORIDE 106 mmol/L (98-107); CREATININE 2.7 mg/dL (0.6-1.3); GLUCOSE 121 mg/dL (74-106); MAGNESIUM 1.8 mg/dL (1.8-2.4); PHOSPHORUS 5.1 mg/dL (2.5-4.9); POTASSIUM 5.1 mmol/L (3.5-5.1); SODIUM SERUM 139 mmol/L (136-145)
[2020-09-07 04:17] LABS: UREA NITROGEN, BLOOD 85 mg/dL (7-18)
[2020-09-07] MEDS: HYDROCORTISONE SOD SUCCINATE 100 MG/2 ML VIAL IV SCH ×3 (04:18→20:57)
[2020-09-07 04:37] LABS: LYMPHOCYTES % (MANUAL) 4 % (16-48); MONOCYTES % (MANUAL) 3 % (0-11.0); NEUTROPHILS % (MANUAL) 93 (42-76)
--- NOTE | 2020-09-07 04:44 | NUR ---
RN NOTES PT/ H&H IS 6.0/19, INFORMED AARON LAMBERT AND GOT AN ORDER TOP GIVE 1 UNIT PRBC AND STOP THE HEPARIN DRIP
[2020-09-07 06:30] LABS: BASOPHILS % (AUTO) 0.1 % (0.0-2.0); HEMATOCRIT 26 % (33-45); HEMOGLOBIN 7.8 g/dL (11.5-14.8); LYMPHOCYTES # (AUTO) 0.6 /CMM (0.8-4.8); LYMPHOCYTES % (AUTO) 3.7 % (20.0-44.0); MEAN CORPUSCULAR HGB CONC 30 g/dl (31.0-36.0); MEAN CORPUSCULAR VOLUME 102 fL (82-100); MONOCYTES # (AUTO) 0.4 /CMM (0.1-1.30); MONOCYTES % (AUTO) 2.9 % (2.0-12.0); NEUTROPHILS # (AUTO) 14.1 /CMM (1.8-8.9); NEUTROPHILS % (AUTO) 93.3 % (43.0-81.0); PLATELET COUNT (AUTO) 208 /CMM (150-450); RED BLOOD CELL COUNT(AUTO) 2.54 MIL/uL (4.0-5.2); WHITE BLOOD COUNT (AUTO) 15.1 K/uL (4.3-11.0)
[2020-09-07] MEDS: BLOOD SUGAR DIAGNOSTIC 1 EACH STRIP VI SCH ×3 (07:30→21:02)
--- NOTE | 2020-09-07 07:30 | NUR ---
MS/RN Opening note Patient received from forming operator. A/O X2, vital signs stable, does not appear in any distress or discomfort at this time. Heparin infusion on hold at this time due to possible CT guided renal biopsy on Friday. Heplock to left AC flushing well with normal saline. Dialysis catheter to right femoral vein noted, dressing clean and dry, last HD 09/05, with no fluid removed, for cleaning only. Safety measures in place, bed in low setting, side rails X3 in upright position, call light within reach. Will continue to monitor and ensure safety.
[2020-09-07 08:00] VITALS: BP 119/83
--- NOTE | 2020-09-07 08:07 | NUR ---
MS/RN Labs Morning labs reviewed: -H&H 7.8 -K+ 5.1 Dr Peterson called to confirm if one unit of blood was still to be transfused, awaiting call back.
[2020-09-07] MEDS: SODIUM BICARBONATE 650 MG TABLET PO SCH ×2 (09:00→20:58)
--- NOTE | 2020-09-07 12:02 | NUR ---
MS/RN Heparin Order given by Dr Peterson to restart heparin infusion. Restarted at 1150units/23ml/hr. Next INR/PT scheduled to be drawn at 1800.
[2020-09-07 16:00] VITALS: BP 88/36
[2020-09-07] MEDS ORDERED: IV NS 0.9% 250 ML IV ONE (16:30)
[2020-09-07 17:15] VITALS: BP 95/54
--- NOTE | 2020-09-07 18:41 | NUR ---
MS/ RN CLOSING NOTES PT RESTING IN BED. LOW FOWLERS POSITION. NO S/S OF DISCOMFORT OR DISTRESS. NO FEVER NOTED. NO SOB. EVEN AND UNLABORED BREATHING NOTED. PT IS COMPLIANT WITH MEDICATIONS. PT ON 4L O2 VIA NASAL CANNULA. O2 SATURATION IS 93%. EMPTIED SUBRAMANIAN AT 50 ML. NO KINKS ON SUBRAMANIAN NOTED. WILL ENDORSE CONTINUATION OF CARE TO INSPECTOR PRINTED CIRCUIT BOARDS.
--- NOTE | 2020-09-07 19:30 | NUR ---
MS RN NOTE: PATIENT RESTING IN BED, NO ACUTE DISTRESS NOTED. BREATHING EVEN AND UNLABORED, NO SOB NOTED. SUBRAMANIAN IN PLACE, EMPTY AT THIS TIME. I V TO LAC IN PLACE, INFUSING HEPARIN DRIP AT 1150UNITS/HR; 23 ML/HR PER PROTOCOL, NO ACTIVE BLEEDING NOTED. BED LOCKED AND IN LOWEST POSITION, CALL LIGHT IN REACH. WILL CONTINUE TO MONITOR.
--- NOTE | 2020-09-07 20:30 | NUR ---
MS RN NOTE: PATIENT PTT RESULTS ARE 46.4, NO CHANGE IN HEPARIN DRIP PER PROTOCOL. NO ACTIVE SIGNS OF BLEEDING NOTED. PTT SCHEDULED AGAIN IN 6 HOURS. WILL CONTINUE TO MONITOR.
[2020-09-07] MEDS: HEPARIN INFUSION/D5W 500 ML IV PRN (22:04)
[2020-09-08] VITALS (7 sets, daily range): BP systolic 95–126; BP diastolic 38–64
--- NOTE | 2020-09-08 01:30 | NUR ---
MS RN NOTE: PATIENT PTT RESULTS ARE 92.5, TO HOLD HEPARIN DRIP FOR 1 HOUR AND TO DECREASE BY 200 UNITS/HR PER PROTOCOL. NO ACTIVE SIGNS OF BLEEDING NOTED. PTT SCHEDULED AGAIN IN 6 HOURS. WILL CONTINUE TO MONITOR.
[2020-09-08] MEDS: HYDROCORTISONE SOD SUCCINATE 100 MG/2 ML VIAL IV SCH ×3 (03:07→18:47)
--- NOTE | 2020-09-08 06:15 | NUR ---
MS RN NOTE: PATIENT RESTING IN BED, NO ACUTE DISTRESS NOTED. BREATHING EVEN AND UNLABORED, NO SOB NOTED. SUBRAMANIAN IN PLACE TIME. IV TO LAC IN PLACE, INFUSING HEPARIN DRIP AT 950UNITS/HR; 19 ML/HR PER PROTOCOL, NO ACTIVE BLEEDING NOTED. BED LOCKED AND IN LOWEST POSITION, CALL LIGHT IN REACH. WILL ENDORSE TO DAY NURSE TO CONTINUE WITH PLAN OF CARE.
--- NOTE | 2020-09-08 08:00 | NUR ---
MS RN NOTE: PATIENT RESTING IN BED, NO ACUTE DISTRESS NOTED. BREATHING EVEN AND UNLABORED, NO SOB NOTED. SUBRAMANIAN IN PLACE, EMPTY AT THIS TIME. I V TO LAC IN PLACE, INFUSING HEPARIN DRIP AT 950UNITS/HR; 19 ML/HR PER PROTOCOL, NO ACTIVE BLEEDING NOTED. BED LOCKED AND IN LOWEST POSITION, CALL LIGHT IN REACH. WILL CONTINUE TO MONITOR.
[2020-09-08] MEDS: BLOOD SUGAR DIAGNOSTIC 1 EACH STRIP VI SCH ×4 (08:37→21:24)
[2020-09-08] MEDS: SODIUM BICARBONATE 650 MG TABLET PO SCH ×2 (09:22→21:15)
[2020-09-08 09:24] LABS: CALCIUM, SERUM 7.1 mg/dL (8.5-10.1); CARBON DIOXIDE 25 mmol/L (21-32); CHLORIDE 104 mmol/L (98-107); CREATININE 2.5 mg/dL (0.6-1.3); GLUCOSE 108 mg/dL (74-106); MAGNESIUM 1.9 mg/dL (1.8-2.4); PHOSPHORUS 5.2 mg/dL (2.5-4.9); POTASSIUM 4.3 mmol/L (3.5-5.1); SODIUM SERUM 137 mmol/L (136-145); UREA NITROGEN, BLOOD 72 mg/dL (7-18)
--- NOTE | 2020-09-08 09:30 | NUR ---
PT MADE MODERATE BLACK SEMI WATERY AND SOFT STOOL.NOTIFIED DR JENNIFER RANDOLPH WITH ORDERS FOR OCCULT BLOOD FECAL TEST AND CARRIED OUT.
[2020-09-08 10:22] LABS: BASOPHILS # (AUTO) 0.2 /CMM (0.0-0.2); BASOPHILS % (AUTO) 1.2 % (0.0-2.0); LYMPHOCYTES # (AUTO) 0.4 /CMM (0.8-4.8); LYMPHOCYTES % (AUTO) 3.3 % (20.0-44.0); MEAN CORPUSCULAR HGB CONC 31 g/dl (31.0-36.0); MEAN CORPUSCULAR VOLUME 98 fL (82-100); MONOCYTES # (AUTO) 0.2 /CMM (0.1-1.30); MONOCYTES % (AUTO) 1.6 % (2.0-12.0); NEUTROPHILS # (AUTO) 11.6 /CMM (1.8-8.9); NEUTROPHILS % (AUTO) 93.9 % (43.0-81.0); PLATELET COUNT (AUTO) 225 /CMM (150-450); WHITE BLOOD COUNT (AUTO) 12.4 K/uL (4.3-11.0)
[2020-09-08 10:28] LABS: RED BLOOD CELL COUNT(AUTO) 1.99 MIL/uL (4.0-5.2)
[2020-09-08 10:30] LABS: HEMATOCRIT 20 % (33-45)
--- NOTE | 2020-09-08 10:30 | NUR ---
PT'S HGB/HCT 02/24.6 STOPPED THE HEPARIN DRIP AND NOTIFIED DR JENNIFER RANDOLPH. PT'S FAMILY ON THE PHONE TALKING WITH THE PT AND UPDATED FAMILY DTR-IN LAW,NICOLASA AND PT'S SON, LINDA .
[2020-09-08] MEDS: HEPARIN INFUSION/D5W 500 ML IV PRN (10:51)
[2020-09-08 11:01] LABS: BAND % (MANUAL) 2 % (0.0-5.0); LYMPHOCYTES % (MANUAL) 8 % (16-48); METAMYELOCYTES % 1 % (0-0); MONOCYTES % (MANUAL) 5 % (0-11.0); MYELOCYTES % 1 % (0-0); NEUTROPHILS % (MANUAL) 83 (42-76)
[2020-09-08 11:09] LABS: OCCULT BLOOD STOOL POSITIVE (NEGATIVE)
--- NOTE | 2020-09-08 12:20 | NUR ---
DR BEATA DILLON CALLED WITH ORDERS FOR IVC FILTER PLACEMENT AND TO OBTAIN CONSENTS AND WILL DO EMERGENCY PROCEDURE IN O.R. CALLED PT'S SON,BEATA SCOTT WHO AGREED FOR THE IVC FILTER PLACEMENT PROCEDURE AND CARRIED OUT.
[2020-09-08] MEDS ORDERED: LIDOCAINE 1% INJ 50 ML MDV IJ ONE (13:15)
[2020-09-08] MEDS ORDERED: ANESTHESIA TRAY IN PYXIS 1 EA TRAY MC ONE (13:15)
[2020-09-08] MEDS ORDERED: IOHEXOL 240MG/ML 100 ML IV ONE (13:20)
--- NOTE | 2020-09-08 13:26 | NUR ---
PT WAS BROUGHT TO O.R. FOR IVC FILTER PLACEMENT.WITH ALL CONSENTS SIGNED.WITH STABLE V/S.
--- NOTE | 2020-09-08 14:51 | NUR ---
Rachel CALLED AND SAYING THAT THEY WILL BRING THE PT BACK TO HER ROOM SOON AND JUST TO RESUME PREVIOUS DIET AND MEDS.
--- NOTE | 2020-09-08 15:00 | NUR ---
PT CAME BACK FROM O.R. S/P IVC FILTER PLACEMENT WITH NO BLEEDING ON THE SITE.WILL MONITOR.
--- NOTE | 2020-09-08 16:03 | NUR ---
STARTED TRANSFUSING 1 UNIT PRBC WITH STABLE V/S.WILL MONITOR FOR ANY ADVERSE REACTIONS.
--- NOTE | 2020-09-08 16:18 | NUR ---
WITH ONGOING TRANSFUSION OF 1 UNIT PRBC WITH NO ADVERSE REACTIONS NOTED.STABLE V/S.PT DENIES ANY PAIN OR DISTRESS AND WAS BUSY WATCHING TV.WILL CONTINUE TO MONITOR..
--- NOTE | 2020-09-08 18:54 | NUR ---
COMPLETED 1 UNIT PRBC TRANSFUSION WITH NO ADVERSE REACTION AND WITH STABLE V/S.PT WATCHING TV SHOWS.PT HAS POOR APPETITE.ENCOURAGED TO FINISH HER NEPRO VANILLA. CALL LIGHT PLACED WITHIN REACH.
--- NOTE | 2020-09-08 19:30 | NUR ---
MS RN OPENING NOTE: RECEIVED PATIENT RESTING IN BED, WATCHING TV. A & O X 2-3. ABLE TO MAKE HER NEEDS KNOWN. NO ACUTE DISTRESS NOTED. BREATHING EVEN AND UNLABORED, NO SOB NOTED. ON O2 @ 4LPM VIA NC. SUBRAMANIAN IN PLACE, WITH MINIMAL YELLOW COLOR URINE DRAINING. I V TO LAC IN PLACE, INTACT, PATENT, SL. RIGHT GROIN IVC FILTER IN PLACE, DRESSING DRY, CLEAN & INTACT. NO ACTIVE BLEEDING NOTED. FEW SIPS OF NEPRO GIVEN & TOLERATED WELL. BED LOCKED AND IN LOWEST POSITION, CALL LIGHT IN REACH. WILL CONTINUE TO MONITOR FOR RAMY.
[2020-09-09] MEDS: HYDROCORTISONE SOD SUCCINATE 100 MG/2 ML VIAL IV SCH ×3 (02:57→20:13)
--- NOTE | 2020-09-09 06:14 | NUR ---
MS RN NOTE: CELL PHONE MISSING PATIENT ASKED FOR HER CELL PHONE, WHEN CHECKED AROUND TO GIVE PHONE TO THE PATIENT BUT CAN NOT FIND PATIENT'S CELL PHONE. ASKED THE PATIENT WHEN SHE USED HER CELL PHONE LAST, PATIENT STATED," 2-3 DAYS AGO." SEARCHED EVERYWHERE BUT PATIENT'S CELL PHONE IS NOT FOUND. ASKED THE PATIENT IF ANY RELATIVE OR FAMILY MEMBER VISITED HER WHO MIGHT HAVE TAKEN HER CELL PHONE HOME, PATIENT STATED," BALA BROUGHT RANDOLPH BUT I DO NOT KNOW IF SHE TOOK MY PHONE HOME." NURSING HEALTHCARE ADMINISTRATION INTERNSHIP NOTIFIED.
[2020-09-09] MEDS: BLOOD SUGAR DIAGNOSTIC 1 EACH STRIP VI SCH ×4 (06:43→21:22)
--- NOTE | 2020-09-09 06:55 | NUR ---
MS RN CLOSING NOTE: PATIENT SLEPT WELL AT NIGHT. A & O X 2-3. ABLE TO MAKE HER NEEDS KNOWN. NO ACUTE DISTRESS NOTED. BREATHING EVEN AND UNLABORED, NO SOB NOTED. ON O2 @ 4LPM VIA NC. SUBRAMANIAN IN PLACE, WITH URINE OUTPUT OF 150 ML AT NIGHT. I V TO LAC IN PLACE, INTACT, PATENT, SL. BS 95 MG/DL, NO COVERAGE NEEDED. RIGHT GROIN IVC FILTER IN PLACE, DRESSING DRY, CLEAN & INTACT. NO ACTIVE BLEEDING NOTED. PO INTAKE ENCOURAGED & TOLERATED WELL. BED LOCKED AND IN LOWEST POSITION, CALL LIGHT IN REACH. WILL ENDORSE TO AM RN FOR CONTINUITY OF CARE.
[2020-09-09 07:29] LABS: CALCIUM, SERUM 7.3 mg/dL (8.5-10.1); CARBON DIOXIDE 22 mmol/L (21-32); CHLORIDE 106 mmol/L (98-107); CREATININE 2.8 mg/dL (0.6-1.3); GLUCOSE 108 mg/dL (74-106); MAGNESIUM 1.9 mg/dL (1.8-2.4); PHOSPHORUS 5.7 mg/dL (2.5-4.9); POTASSIUM 4.1 mmol/L (3.5-5.1); SODIUM SERUM 141 mmol/L (136-145)
[2020-09-09 07:31] LABS: UREA NITROGEN, BLOOD 86 mg/dL (7-18)
--- NOTE | 2020-09-09 07:39 | NUR ---
HEAD TURBINE OPERATOR OPENING NOTES RECEIVED PT IN BED AWAKE, A/O X2-3. ABLE TO MAKE NEEDS KNOWN, DENIES PAIN OR ANY DISCOMFORTS AT THIS TIME. ON 02 VIA N/C AT 4LPM, TOLERATING WELL WITH NO SOB NOTED. HD CATH ON RIGHT GROIN IN PLACE WITH DRESSING C/D/I. IV ACCESS ON LAC G#20 INTACT AND PATENT. SUBRAMANIAN IN PLACE DRAINING CLEAR YELLOW URINE VIA GRAVITY. SAFETY MEASURES IN PLACE: HOB KEPT ELEVATED. BED IN LOWEST LOCKED POSITION WITH SR UP X2, BED ALARM ON AND CALL LIGHT W/IN EASY REACH. WILL CONTINUE TO MONITOR PT ACCORDINGLY.
[2020-09-09 08:00] VITALS: BP 104/50
[2020-09-09 08:40] LABS: BASOPHILS # (AUTO) 0.1 /CMM (0.0-0.2); BASOPHILS % (AUTO) 0.5 % (0.0-2.0); HEMATOCRIT 26 % (33-45); HEMOGLOBIN 8.7 g/dL (11.5-14.8); LYMPHOCYTES # (AUTO) 0.3 /CMM (0.8-4.8); LYMPHOCYTES % (AUTO) 2.6 % (20.0-44.0); MEAN CORPUSCULAR HGB CONC 33 g/dl (31.0-36.0); MEAN CORPUSCULAR VOLUME 93 fL (82-100); MONOCYTES # (AUTO) 0.2 /CMM (0.1-1.30); MONOCYTES % (AUTO) 1.7 % (2.0-12.0); NEUTROPHILS # (AUTO) 10.6 /CMM (1.8-8.9); NEUTROPHILS % (AUTO) 95.2 % (43.0-81.0); PLATELET COUNT (AUTO) 260 /CMM (150-450); RED BLOOD CELL COUNT(AUTO) 2.83 MIL/uL (4.0-5.2); WHITE BLOOD COUNT (AUTO) 11.2 K/uL (4.3-11.0)
[2020-09-09] MEDS: SODIUM BICARBONATE 650 MG TABLET PO SCH ×2 (09:10→20:16)
[2020-09-09] MEDS: INSULIN REGULAR, HUMAN 100 UNIT/ML 3 ML VIAL SQ PRN (12:53)
--- NOTE | 2020-09-09 15:21 | NUR ---
RN NOTES PATIENT ON HEMODIALYSIS IN PROGRESS VIA RIGHT FEMORAL HD CATHETER. WILL MONITOR FOR ANY ADVERSE REACTIONS NOTED.
[2020-09-09 16:00] VITALS: BP 100/57
[2020-09-09] MEDS: DEXTROSE 50%-WATER 50 ML DISP.SYRIN IV PRN ×3 (17:33→18:49)
--- NOTE | 2020-09-09 17:56 | NUR ---
RN NOTES PATIENT HM DIALYSIS WITH NO ZERO OUT PU PER TIMBER GIRDLER. BLOOD SUGAR CHECKED AND WAS 46 MG/DL INITIALLY, PT A/O X2-3. VERBALLY RESPONSIVE WITH NO COMPLAINTS VOICED. D 50 ADMINISTERED AND RECHECKED BS AND WENT UP TO 145 MG/DL. LEFT MESSAGE TO DR RODRIGUEZ. AWAITING FOR RETURN CALL. WILL CONTINUE TO MONITOR.
--- NOTE | 2020-09-09 19:27 | NUR ---
MS RN CLOSING NOTES RECEIVED PT IN BED AWAKE, A/O X2-3. ABLE TO MAKE NEEDS KNOWN, DENIES PAIN OR ANY DISCOMFORTS AT THIS TIME. ON 02 VIA N/C AT 4LPM, TOLERATING WELL WITH NO SOB NOTED. HD CATH ON RIGHT GROIN IN PLACE WITH DRESSING C/D/I. IV ACCESS ON LAC G#20 INTACT AND PATENT. SUBRAMANIAN IN PLACE DRAINING CLEAR YELLOW URINE VIA GRAVITY. BLOOD SUGAR AT 1843 IS 151. SAFETY MEASURES IN PLACE: HOB KEPT ELEVATED. BED IN LOWEST LOCKED POSITION WITH SR UP X2, BED ALARM ON AND CALL LIGHT W/IN EASY REACH. WILL CONTINUE TO MONITOR PT ACCORDINGLY.
[2020-09-09 20:00] VITALS: BP 92/42
--- NOTE | 2020-09-09 20:00 | NUR ---
OPENING NOTES: RECEIVED PATIENT IN BED, AWAKE, NOTED PATIENT TO BE PLEASANTLY CONFUSED. NOT IN RESPIRATORY DISTRESS THIS TIME OF ASSESSMENT. RESPIRATIONS ARE EVEN AND UNLABORED. EDEMA ON UPPER AND LOWER EXTREMITIES NOTED. RIGHT FEMORAL CATH HD ACCESS IN PLACE. SUBRAMANIAN CATH IN PLACE. WILL ADMINISTER ORDERED MEDICATIONS. SAFETY AND FALL PRECAUTIONS MAINTAINED. BED ALARM KEPT ON. BLOOD GLUCOSE LEVELS CHECKED. WILL CONTINUE TO MONITOR PATIENT.
[2020-09-10] MEDS: HYDROCORTISONE SOD SUCCINATE 100 MG/2 ML VIAL IV SCH ×3 (03:07→18:03)
[2020-09-10] MEDS: BLOOD SUGAR DIAGNOSTIC 1 EACH STRIP VI SCH ×4 (06:53→21:49)
--- NOTE | 2020-09-10 07:00 | NUR ---
CLOSING NOTES: PATIENT IN BED, AWAKE, NO COMPLAINS OF PAIN IR DISCOMFORT THIS TIME. NO FACIAL GRIMACE NOTED. PATIENT IS ALERT AND ORIENTED X1, CONFUSED HOWEVER COMPLIANT WITH MEDICATIONS AND TREATMENT. ORDERED MEDICATIONS ADMINISTERED. SAFETY AND FALL PRECAUTIONS OBSERVED. RIGHT FEMORAL CATH HD ACCESS IN PLACE. BLOOD GLUCOSE LEVELS MONITORED. KEPT PATIENT ON NPO FOR EGD PROCEDURE. OBTAINED TELELPHONE CONSENT FROM SON AND DAUGHTER IN [place] FOR THE EGD PROCEDURE TODAY, WITNESSED BY ANOTHER RN- JAZMINE KUHN. WILL ENDORSE PATIENT TO DAY SHIFT NURSE.
--- NOTE | 2020-09-10 07:30 | NUR ---
MS/RN OPENING NOTE Received patient resting in bed, A&O x 2, forgetful. Denies any pain and discomfort at this time. Breathing even and non-labored on 4L oxygen via NC. No cardiac distress noted. IV access noted on LAC #20g, patent and intact, and flushing well. Briscoe in place, draining clear jese urine well. Kept patient NPO for EGD procedure today. Bed locked to its lowest position, side rails x 2 up, call light in hand. Will continue with current medical management.
[2020-09-10 08:00] VITALS: BP 100/33
--- NOTE | 2020-09-10 08:23 | NUR ---
MS/RN NOTE Patient's blood pressure noted at 99/40, re-checked about three times - around the range of 90s/40s. Notified KAREN Grier. No new orders at this time.
[2020-09-10] MEDS: SODIUM BICARBONATE 650 MG TABLET PO SCH ×2 (08:57→20:44)
--- NOTE | 2020-09-10 09:15 | NUR ---
MS/RN NOTE Telephone consent given by Chad and Elsa Barker for EGD procedure today and CT renal biopsy tomorrow.
--- NOTE | 2020-09-10 11:00 | NUR ---
MS/RN NOTE Spoke with radiology to confirm CT guided renal biopsy procedure tomorrow, radiology states "not sure if the procedure will be done, check back tomorrow AM." early childhood teacher assistant made aware, keep NPO at midnight.
[2020-09-10] MEDS: SUCRALFATE 1 G/10 ML UDC PO SCH ×3 (11:06→21:09)
--- NOTE | 2020-09-10 15:00 | NUR ---
MS/RN NOTE Patient accidentally pulled out IV access by moving arm around. Removed IV access on LAC #20g with catheter intact, placed pressure with gauze and tape. Attempted 2 IV insertions, patient is hard stick, notified Marvel MATHEMATICS INSTRUCTOR. Ordered midline access insertion.
--- NOTE | 2020-09-10 15:40 | NUR ---
MS/RN NOTE Midline access done on LAURA #18, patent and intact, and flushing well.
[2020-09-10 16:00] VITALS: BP 98/68
--- NOTE | 2020-09-10 18:52 | NUR ---
MS/RN CLOSING NOTE Patient awake in bed, A&O x 2, forgetful. All needs met and attended to, frequently reoriented throughout shift. Denies any pain and discomfort. Breathing even and non-labored on 4L oxygen via NC. No cardiac distress noted. Midline access on LAURA #18, remain patent and intact, and flushing well. Briscoe in place, draining clear jese urine well. Fall precautions maintained. Will endorse to assistant casino shift manager nurse.
--- NOTE | 2020-09-10 19:30 | NUR ---
MSRN LETHARGIC, LIMITED VERBAL NO RESPIRATORY DISTRESS. LAST BS WAS 63 WAS GIVEN JICES BY OUTGOING RN. WILL MONITOR.
[2020-09-10 20:00] VITALS: BP 90/49
[2020-09-10] MEDS: PANTOPRAZOLE 40 MG TABLET.DR PO SCH (20:43)
--- NOTE | 2020-09-10 21:00 | NUR ---
MSRN PER RN BLOOD SUGAR WAS 24, D 50 ADMINISTERED RECHECKED POST 30 MINS WAS 189. PATIENT MORE AWAKE, ABLE TO CARRY CONVERSATION. OTHE DUE MEDS ADMINISTERED. CLOSELY WATCHED
[2020-09-10] MEDS: DEXTROSE 50%-WATER 50 ML DISP.SYRIN IV PRN (21:49)
--- NOTE | 2020-09-11 03:26 | NUR ---
MS RN NPO FOR NOW, FOR CT GUIDED RENAL BIOPSY IN AM. NOTIFIED RADIOLOGY PROCEDURE BETWEEN 8 TO 9 AM.
[2020-09-11] MEDS: HYDROCORTISONE SOD SUCCINATE 100 MG/2 ML VIAL IV SCH ×3 (04:03→21:44)
[2020-09-11 06:08] LABS: EOSINOPHILS % (AUTO) 0.3 % (0.0-6.0); HEMATOCRIT 22 % (33-45); LYMPHOCYTES # (AUTO) 0.2 /CMM (0.8-4.8); MEAN CORPUSCULAR HGB CONC 31 g/dl (31.0-36.0); MEAN CORPUSCULAR VOLUME 102 fL (82-100); MONOCYTES # (AUTO) 0.1 /CMM (0.1-1.30); MONOCYTES % (AUTO) 1.1 % (2.0-12.0); NEUTROPHILS # (AUTO) 4.8 /CMM (1.8-8.9); NEUTROPHILS % (AUTO) 94.6 % (43.0-81.0); PLATELET COUNT (AUTO) 178 /CMM (150-450); RED BLOOD CELL COUNT(AUTO) 2.15 MIL/uL (4.0-5.2); WHITE BLOOD COUNT (AUTO) 5.1 K/uL (4.3-11.0)
[2020-09-11 06:14] LABS: CALCIUM, SERUM 7.4 mg/dL (8.5-10.1); CARBON DIOXIDE 22 mmol/L (21-32); CHLORIDE 105 mmol/L (98-107); CREATININE 2.8 mg/dL (0.6-1.3); GLUCOSE 91 mg/dL (74-106); POTASSIUM 4.1 mmol/L (3.5-5.1); SODIUM SERUM 138 mmol/L (136-145); UREA NITROGEN, BLOOD 66 mg/dL (7-18)
[2020-09-11 06:16] LABS: HEMOGLOBIN 6.8 g/dL (11.5-14.8)
[2020-09-11] MEDS: SUCRALFATE 1 G/10 ML UDC PO SCH ×4 (07:16→21:43)
--- NOTE | 2020-09-11 07:23 | NUR ---
MS RN OPENING NOTES: RECEIVED PATIENT IN BED AWAKE, A/O X2-3. VERBALLY RESPONSIVE, DENIES PAIN OR ANY DISCOMFORTS AT THIS TIME. PT FOR CT GUIDED RENAL BIOPSY TODAY, NPO MAINTAINED. ON SUPPLEMENTAL 02 VIA N/C AT 3LPM AT THIS TIME, TOLERATING WELL WITH NO SOB NOTED. RIGHT FEMORAL HD CATHETER IN PLACE WITH DRESSING C/D/I . SUBRAMANIAN CATH IN PLACE DRAINING CLEAR YELLOW URINE VIA GRAVITY. SAFETY AND FALL PRECAUTIONS IN PLACE: HOB KEPT ELEVATED, BED IN LOWEST MELBA POSITION, SR UP X2 AND BED ALARM ON. WILL CONTINUE TO MONITOR PATIENT.
[2020-09-11 08:00] VITALS: BP 101/67
[2020-09-11] MEDS: DEXTROSE 50%-WATER 50 ML DISP.SYRIN IV PRN (08:01)
[2020-09-11] MEDS: BLOOD SUGAR DIAGNOSTIC 1 EACH STRIP VI SCH ×4 (08:24→21:44)
[2020-09-11] MEDS: PANTOPRAZOLE 40 MG TABLET.DR PO SCH ×2 (08:55→21:43)
[2020-09-11] MEDS: SODIUM BICARBONATE 650 MG TABLET PO SCH ×2 (08:55→21:45)
[2020-09-11 09:49] LABS: BAND % (MANUAL) 25 % (0.0-5.0); LYMPHOCYTES % (MANUAL) 6 % (16-48); METAMYELOCYTES % 3 % (0-0); MYELOCYTES % 2 % (0-0); NEUTROPHILS % (MANUAL) 64 (42-76)
--- NOTE | 2020-09-11 10:28 | NUR ---
RN NOTES PT NOTED WITH LOW BS THIS MORNING 57 MG/DL, D 50 GIVEN AND BS WENT UP TO 128. KRISS DAIGLE MADE AWARE WITH ORDER TO START PT ON D5 1/2 NS AT 50 ML/HR AND CONTINUE TO MONITOR DIABETIC STATUS.
[2020-09-11] MEDS: INSULIN REGULAR, HUMAN 100 UNIT/ML 3 ML VIAL SQ PRN ×2 (11:43→17:18)
--- NOTE | 2020-09-11 12:56 | NUR ---
LAB UNABLE TO DRAW INR DR ZAMUDIO NOTIFIED, , RN RAY WILL TRY AND GET BLOOD DRAWN AND KEEP US POSTED WILL TRY PROCEDURE TOMORROW IF INR IS NORMAL PK
[2020-09-11] MEDS ORDERED: MISOPROSTOL 100 MCG TABLET PO SCH (13:00)
--- NOTE | 2020-09-11 13:13 | NUR ---
RN NOTES SENIOR WINDOWS SYSTEMS ADMINISTRATOR CAME TO [place] BLOOD ON PT FOR PT INR BUT PT IS HARD STICK. TWICE I [place] BLOOD FROM PT'S INDER MIDLINE AND ABLE TO COLLECT BLOOD SAMPLE BUT LAB CALLED BOTH TIMES AND STATED THAT BLOOD WERE HEMOLYZED. RADIOLOGY CALLED AND SPOKE TO ROMEO PENDLETON AND EXPLAINED WHAT HAPPENED, HE CALLED THE MD WHO WILL DO THE PT'S CT GUIDED RENAL BIOPSY AND SAID THAT CT IS CANCELLED TODAY AND WILL DO IT TOMORROW PENDING PT INR RESULTS. WILL ENDORSE.
--- NOTE | 2020-09-11 13:21 | NUR ---
RN NOTES HEMODIALYSIS JUST STARTED BY DIALYSIS NURSE OLE VIA RIGHT FEMORAL HD CATH. PRE HD V/S CHECKED: BP 194/31, P 71, R 18 AND T 97.8F. WILL CONTINUE TO MONITOR ANY ADVERSE REACTIONS.
[2020-09-11 14:03] VITALS: BP 94/31
--- NOTE | 2020-09-11 14:04 | NUR ---
RN NOTES PT WITH HGB OF 6.8, 1 BAG OF PRBC 377 ML GIVEN TO HD NURSE OLE TO TRANSFUSE WITH HD. V/S TAKEN AND RECORDED. WILL MONITOR FOR ALLERGIC/ADVERSE REACTIONS. WILL CONTINUE TO MONITOR.
[2020-09-11 15:35] VITALS: BP 93/44
--- NOTE | 2020-09-11 15:36 | NUR ---
RN NOTES HEMODIALYSIS AND BLOOD TRANSFUSION OF PRBC X1 UNIT FINISHED, PROCEDURES TOLERATED WELL BY PT. DRESSING ON RIGHT FEMORAL HD CATH CHANGED BY DIALYSIS NURSE. V/S CHECKED AND RECORDED. WILL CONTINUE TO MONITOR.
[2020-09-11 16:00] VITALS: BP 111/69
--- NOTE | 2020-09-11 18:48 | NUR ---
MS RN CLOSING NOTES: PATIENT IN BED AWAKE AT THIS TIME. A/O X2-3. VERBALLY RESPONSIVE, CALM AND QUIET. PT FOR CT GUIDED RENAL BIOPSY TOMORROW, NPO POST MIDNIGHT WILL BE ENFORCED. ON 02 VIA N/C AT 3LPM AT THIS TIME, TOLERATING WELL WITH NO SOB NOTED DURING SHIFT. RIGHT FEMORAL HD CATHETER IN PLACE WITH DRESSING C/D/I. SUBRAMANIAN CATH IN PLACE DRAINING CLEAR YELLOW URINE VIA GRAVITY, SUBRAMANIAN CARE DONE. PT TURNED AND REPOSITIONED Q 2HRS AND PRN. ALL NEEDS AND CARE PROVIDED WELL. ALL SAFETY MEASURES KEPT IN PLACE: HOB KEPT ELEVATED, BED IN LOWEST LOCKED POSITION WITH SR UP X2. CALL LIGHT WITHIN EASY REACH. WILL ENDORSE TO MILL OPERATOR HELPER NURSE FOR RAMY
[2020-09-11 20:00] VITALS: BP 84/29
[2020-09-11 21:32] VITALS: BP 86/56
--- NOTE | 2020-09-11 21:34 | NUR ---
vs rechecked bp noted to be 86/56 hr 89 patient denies feeling light headed. patient is alert and complaining of being in bad position. patient repositined will cont to monitor condition. spo2 95% on 3lnc.
[2020-09-11] MEDS: IV D5/0.45 NACL 1,000 ML IV PRN (22:10)
[2020-09-12] VITALS (38 sets, daily range): BP systolic 46–150; BP diastolic 19–109
[2020-09-12] MEDS: BLOOD SUGAR DIAGNOSTIC 1 EACH STRIP VI SCH ×4 (06:29→21:57)
--- NOTE | 2020-09-12 08:56 | NUR ---
PER DR ZAMUDIO PT INR TO HIGH FOR PROCEDURE BIOPSY, DEVONTE BLACKWELL NOTIFIED AND TOLD TO LET ORDERING PMD KNOW LAB STAUS AND TO REDRAW PT FOR TOMORROW PK
[2020-09-12] MEDS: SUCRALFATE 1 G/10 ML UDC PO SCH ×4 (09:00→21:27)
[2020-09-12] MEDS: PANTOPRAZOLE 40 MG TABLET.DR PO SCH ×2 (09:00→21:27)
[2020-09-12] MEDS: SODIUM BICARBONATE 650 MG TABLET PO SCH ×2 (09:00→21:27)
--- NOTE | 2020-09-12 10:12 | NUR ---
WOUND CARE CONSULT: PT PRESENTS WITH INCONTINENCE ASSOCIATED SKIN DAMAGE TO BILATERAL LOWER BUTTOCKS. PT NOTED TO BE INCONTINENT OF LARGE AMOUNT OF LOOSE STOOL. PT ALSO NOTED TO HAVE PROFOUND GENERALIZED EDEMA. DISCUSSED SKIN PROTECTION WITH NURSING STAFF. IN AGREEMENT WITH PLAN OF CARE. Addendum: 09/12/20 at 1013 by JUAREZ OCONNOR WNDNU Amended: Links added.
[2020-09-12] MEDS: MISOPROSTOL 100 MCG TABLET PO SCH ×4 (10:28→21:29)
--- NOTE | 2020-09-12 10:30 | NUR ---
m/s auction clerk: notes noted with shortness of breath, wheezing barbara upon auscultation. skylar nelson (specialist managers) here and assessed pt at bedside with orders. orders acknowledged. r.t. notified of orders.
--- NOTE | 2020-09-12 10:50 | NUR ---
m/s software development coordinator: notes r.t. at bedside and informed me if we can get an abg order. skylar (shopping centre manager) still here and made aware. increase oxygen to 5l/min via n/c. hob elevated. r.t. having a hard time getting the blood gas. repositioned pt. primary nurse and shopping centre manager at bedside.
[2020-09-12] MEDS: HYDROCORTISONE SOD SUCCINATE 100 MG/2 ML VIAL IV SCH ×2 (10:54→21:27)
[2020-09-12] MEDS ORDERED: IPRATROPIUM NEB FS 0.5 MG/2.5 ML AMPUL.NEB NEB PRN (11:00)
[2020-09-12] MEDS ORDERED: ALBUTEROL FS 2.5 MG/3 ML VIAL.NEB NEB PRN (11:00)
--- NOTE | 2020-09-12 11:15 | NUR ---
m/s manufacturing maintenance manager: notes primary nurse, r.t. and programming coordinator remains at bedsidem pt having difficulty breathing. rapid response called. bs check=30, d50 given by rn. placed pt on non rebreather oxygen, satting at 91%, b/p 55/30, hr 134. icu nurse at bedside. skylar nelson (programming coordinator) called dede (daughter) and updated pt's condition. o2 sats started to go down to 68% and then goes up to 84%. portable x-ray done. rapid response ended at 1135. placed pt on tele nmwu=800's. programming coordinator aware. pt to placed on bipap, no need for intubation per. pt to be transferred to icu, awaiting for bed. dede (daughter) aware of pt's condition, spoke to her over the phone.
[2020-09-12] MEDS ORDERED: PROPOFOL 10MG/ML 50ML 50 ML IV PRN (11:30)
--- NOTE | 2020-09-12 11:35 | NUR ---
m/s scientific editor: notes r.t. placed pt on bipap per orders. updated daughter dede once more, spoke to her over the phone and aware that she is being transferred to icu.
[2020-09-12 11:36] LABS: ABG BASE EXCESS -7.8 mmol/L; ABG OXYGEN SATURATION 93.9 % (92.0-98.5); ABG PCO2 33.1 mmHg (35.0-45.0); ABG PH 7.335 (7.350-7.450); AaDO2 455.7 mmHg; COHb 1.6 % (0.5-1.5); MetHb 0.6 % (0.0-1.5); O2Hb 91.8 % (94.0-97.0); SITE, ABG Left Brachial; VENT MODE, BG 15L NRB
[2020-09-12 11:43] LABS: CALCIUM, SERUM 6.5 mg/dL (8.5-10.1); CARBON DIOXIDE 18 mmol/L (21-32); CHLORIDE 106 mmol/L (98-107); CREATININE 2.6 mg/dL (0.6-1.3); GLUCOSE 75 mg/dL (74-106); POTASSIUM 3.8 mmol/L (3.5-5.1); SODIUM SERUM 140 mmol/L (136-145); UREA NITROGEN, BLOOD 51 mg/dL (7-18)
--- NOTE | 2020-09-12 11:48 | NUR ---
m/s college hire: notes bs check=32, repeated bs=38. rn covering made aware and will administer D50 as ordered. pt for transfer to icu. will continue to monitor. Addendum: 09/12/20 at 1557 by TALHA SHEPHERDN called icu, spoke gertrude (juancarlos) and made aware re: repeat blood sugar=38 and informed him that D50 was given.
[2020-09-12] MEDS: DEXTROSE 50%-WATER 50 ML DISP.SYRIN IV PRN ×3 (11:57→18:28)
[2020-09-12] MEDS ORDERED: ALBUMIN 25% 25 GM in PREMIX 1 EA IV SCH (12:00)
[2020-09-12] MEDS ORDERED: NOREPINEPHRINE 8 MG in IV NS 0.9% 242 ML IV PRN (12:00)
--- NOTE | 2020-09-12 12:20 | NUR ---
m/s hot pipe gauger: notes transferred pt to icu via bed accompanied by 2 nurse, 1 r.t. via acls protocol. report given to eliazar (icu, rn) at bedside.
--- NOTE | 2020-09-12 12:34 | NUR ---
m/s technical programs manager: notes dede (daughter) notified and made aware that she was transferred to icu, room 264.
[2020-09-12 13:21] LABS: ABG BASE EXCESS -8.9 mmol/L; ABG OXYGEN SATURATION 98.9 % (92.0-98.5); ABG PCO2 18.8 mmHg (35.0-45.0); ABG PH 7.465 (7.350-7.450); ABG PO2 275.8 mmHg (75.0-100.0); AaDO2 418.4 mmHg; COHb 0.2 % (0.5-1.5); MetHb 0.7 % (0.0-1.5); SITE, ABG Right Radial
--- NOTE | 2020-09-12 13:30 | NUR ---
PT RECEIVED FROM TALHA RN 3W. PT REPORTED TO BE ALERT AND ORIENTED X 2-3. PATIENT CURRENTLY EYES OPEN NONRESPONSIVE, O2 SATS 95%, NO SOB, LUNG SOUNDS CLEAR AND DIMINISHED. TALHA REPORTED D50 GIVEN TWICE PRIOR TO ICU TRANSFER FOR BS IN 30s. PATIENT CURRENTLY NPO, AWAITING INR RESULTS FOR KIDNEY BIOPSY. PT HAS LAURA MIDLINE AND RIGHT FEMORAL HD CATH INTACT. WILL CONTINUE TO MONITOR CLOSELY
[2020-09-12] MEDS ORDERED: PIPERACILLIN /TAZOBACTAM 3.375 G in IV D5W 50 ML IV SCH (14:00)
[2020-09-12] MEDS ORDERED: PIPERACILLIN /TAZOBACTAM 2.25 G in IV D5W 50 ML IV SCH (14:00)
[2020-09-12 14:47] LABS: BASOPHILS % (AUTO) 2.9 % (0.0-2.0); EOSINOPHILS % (AUTO) 0.6 % (0.0-6.0); HEMATOCRIT 28 % (33-45); HEMOGLOBIN 9.1 g/dL (11.5-14.8); LYMPHOCYTES # (AUTO) 0.1 /CMM (0.8-4.8); LYMPHOCYTES % (AUTO) 6.7 % (20.0-44.0); MEAN CORPUSCULAR HGB CONC 32 g/dl (31.0-36.0); MEAN CORPUSCULAR VOLUME 96 fL (82-100); MONOCYTES % (AUTO) 1.7 % (2.0-12.0); NEUTROPHILS # (AUTO) 1.5 /CMM (1.8-8.9); NEUTROPHILS % (AUTO) 88.1 % (43.0-81.0); PLATELET COUNT (AUTO) 146 /CMM (150-450); RED BLOOD CELL COUNT(AUTO) 2.94 MIL/uL (4.0-5.2)
--- NOTE | 2020-09-12 15:02 | NUR ---
PT NOT GIVEN CYTOTEC PO, PT MENTAL STATUS ALTERED, KAREN BEE AWARE. PT BS CHECKED AT 1300 TO BE 106, RECHECKED AT 1430 TO BE 39, D50 GIVEN, KAREN DELACRUZ AWARE. RN UNABLE TO ADMIN IV MEDS; PT LEVOPHED IV IS INCOMPATIBLE WITH OTHER PRESCRIBED IV SOLUTIONS. KAREN BEE ORDERS PICC LINE, PT AWAITING RESPONSE FROM PICC LINE TEAM
--- NOTE | 2020-09-12 18:00 | NUR ---
PT BS 55, D50 GIVEN PER PROTOCOL
[2020-09-12] MEDS: NOREPINEPHRINE 32 MG in IV NS 0.9% 218 ML IV PRN (18:09)
[2020-09-12 18:30] LABS: ABG BASE EXCESS -6.7 mmol/L; ABG OXYGEN SATURATION 95.9 % (92.0-98.5); ABG PCO2 23.7 mmHg (35.0-45.0); ABG PH 7.449 (7.350-7.450); ABG PO2 88.8 mmHg (75.0-100.0); AaDO2 205.1 mmHg; COHb 0.7 % (0.5-1.5); MetHb 0.3 % (0.0-1.5); O2Hb 94.9 % (94.0-97.0); SITE, ABG Right Radial
[2020-09-12] MEDS ORDERED: PHYTONADIONE INJ 10 MG/1 ML AMPUL SQ ONE (18:30)
[2020-09-12 18:52] LABS: WHITE BLOOD COUNT (AUTO) 1.8 K/uL (4.3-11.0)
[2020-09-12 18:53] LABS: BAND % (MANUAL) 3 % (0.0-5.0); LYMPHOCYTES % (MANUAL) 8 % (16-48); NEUTROPHILS % (MANUAL) 82 (42-76)
[2020-09-12 18:54] LABS: MONOCYTES % (MANUAL) 7 % (0-11.0)
--- NOTE | 2020-09-12 19:30 | NUR ---
EXPRESSIVE THERAPIST NOTE: Rec'd pt in bed on bipap. Tolerating settings well. No resp distress noted at this time. Currently NPO except meds. SR on tele monitor. LAURA midline patent and infusing Levo at 1mcg/kg/min. Will titrate per protocol. Infusing D51/2NS at 50ml/hr. Briscoe catheter in place. Patent and draining urine. Safety measures in place. Will continue to monitor.
--- NOTE | 2020-09-12 21:40 | NUR ---
HEATING EQUIPMENT REPAIRER NOTE: hand etcher at bedside to start dialysis.
[2020-09-12] MEDS: IV D5/0.45 NACL 1,000 ML IV PRN (22:23)
--- NOTE | 2020-09-12 23:16 | NUR ---
COMPUTER PERIPHERAL EQUIPMENT OPERATOR NOTE: Dialysis done, 1L out
[2020-09-13] VITALS (89 sets, daily range): BP systolic 38–150; BP diastolic 22–124
--- NOTE | 2020-09-13 00:43 | NUR ---
PHOTOGRAPHER'S MODEL NOTE: PICC line inserted by PICC line nurse.
[2020-09-13] MEDS: NOREPINEPHRINE 32 MG in IV NS 0.9% 218 ML IV PRN ×3 (02:01→19:12)
[2020-09-13] MEDS: PIPERACILLIN /TAZOBACTAM 2.25 G in IV D5W 50 ML IV SCH ×3 (02:03→18:54)
[2020-09-13 04:25] LABS: BASOPHILS % (AUTO) 0.2 % (0.0-2.0); EOSINOPHILS % (AUTO) 0.5 % (0.0-6.0); HEMATOCRIT 29 % (33-45); HEMOGLOBIN 9.7 g/dL (11.5-14.8); LYMPHOCYTES # (AUTO) 0.2 /CMM (0.8-4.8); LYMPHOCYTES % (AUTO) 5.1 % (20.0-44.0); MEAN CORPUSCULAR HGB CONC 34 g/dl (31.0-36.0); MEAN CORPUSCULAR VOLUME 93 fL (82-100); MONOCYTES % (AUTO) 0.9 % (2.0-12.0); NEUTROPHILS # (AUTO) 3.7 /CMM (1.8-8.9); NEUTROPHILS % (AUTO) 93.3 % (43.0-81.0); PLATELET COUNT (AUTO) 97 /CMM (150-450); RED BLOOD CELL COUNT(AUTO) 3.08 MIL/uL (4.0-5.2); WHITE BLOOD COUNT (AUTO) 3.9 K/uL (4.3-11.0)
[2020-09-13 04:56] LABS: BAND % (MANUAL) 44 % (0.0-5.0); MONOCYTES % (MANUAL) 1 % (0-11.0); NEUTROPHILS % (MANUAL) 48 (42-76)
[2020-09-13 04:57] LABS: LYMPHOCYTES % (MANUAL) 7 % (16-48)
[2020-09-13] MEDS ORDERED: ALBUMIN 25% 25 GM in PREMIX 1 EA IV ONE (06:00)
[2020-09-13] MEDS: DEXTROSE 50%-WATER 50 ML DISP.SYRIN IV PRN ×2 (08:35→18:43)
[2020-09-13] MEDS: BLOOD SUGAR DIAGNOSTIC 1 EACH STRIP VI SCH ×4 (08:42→22:49)
--- NOTE | 2020-09-13 08:42 | NUR ---
PLACED INTO 6 LPM O2 FLOW VIA NASAL CANNULA AND THE HIGHEST SATURATION IS 73%. SWITCH TO NON REBREATHER @ 15 LPM O2 FLOW AND THE SATURATION GO UP TO 89%. NO INCREASE WORK OF BREATHING NOTED. BIPAP ON STAND BY @ BEDSIDE. Addendum: 09/13/20 at 0846 by DANNY RAINEY RT Amended: Links added.
--- NOTE | 2020-09-13 10:00 | NUR ---
PER DR ZAMUDIO PROCEDURE ON HOLD UNTIL PT IS STABLE AND LABS ARE WIHIN NORMAL LIMITS DEVONTE KESHA NOTIFIED PK
[2020-09-13] MEDS: SUCRALFATE 1 G/10 ML UDC PO SCH ×4 (11:02→22:41)
[2020-09-13] MEDS: HYDROCORTISONE SOD SUCCINATE 100 MG/2 ML VIAL IV SCH ×2 (11:02→22:22)
[2020-09-13] MEDS: PANTOPRAZOLE 40 MG TABLET.DR PO SCH ×2 (11:02→22:33)
[2020-09-13] MEDS: SODIUM BICARBONATE 650 MG TABLET PO SCH ×2 (11:02→22:33)
[2020-09-13] MEDS: MISOPROSTOL 100 MCG TABLET PO SCH ×4 (11:13→22:40)
[2020-09-13] MEDS: PHENYLEPHRINE 50 MG in IV NS 0.9% 245 ML IV PRN (13:22)
[2020-09-13 14:47] LABS: ABG BASE EXCESS -3.4 mmol/L; ABG OXYGEN SATURATION 86.3 % (92.0-98.5); ABG PO2 53.9 mmHg (75.0-100.0); AaDO2 621.1 mmHg; COHb 1.6 % (0.5-1.5); MetHb 1.1 % (0.0-1.5); SITE, ABG Right Brachial
[2020-09-13] MEDS ORDERED: ACETAMINOPHEN 325 MG TABLET PO ONE (15:00)
[2020-09-13] MEDS ORDERED: diphenhydrAMINE HCL 50 MG/ML VIAL IV ONE ×2 (15:00→20:30)
--- NOTE | 2020-09-13 15:12 | NUR ---
PLACED INTO HIGH FLOW NASAL CANNULA PER DR. GARRIDO. 40 LPM O2 FLOW / 100% FIO2 Addendum: 09/13/20 at 1513 by DANNY RAINEY RT Amended: Links added.
[2020-09-13 16:01] LABS: D-DIMER 3.9 mg/L(FEU (0.17-0.50)
--- NOTE | 2020-09-13 16:01 | NUR ---
@ 1600 pt placed back into bipap due to not improving spo2 on high flow. pt spo2 is only 83% on high flow. Addendum: 09/13/20 at 1606 by DANNY RAINEY RT Amended: Links added.
--- NOTE | 2020-09-13 16:30 | NUR ---
BIPAP PARAMETERS BELOW CHANGED PER DR. GARRIDO: IPAP 18 EPAP 8 RN NOTIFIED ON CHANGES MADE Addendum: 09/13/20 at 1631 by DANNY RAINEY RT Amended: Links added.
[2020-09-13] MEDS: IV D5/0.45 NACL 1,000 ML IV PRN (20:17)
--- NOTE | 2020-09-13 22:43 | NUR ---
ICU/PLASTERER STUCCO BENADRYL WAS GIVEN AT 2100 BEFORE TRANSFUSION. TRANSFUSION WAS DELAYED
[2020-09-14] VITALS (55 sets, daily range): BP systolic 40–135; BP diastolic 11–89
[2020-09-14] MEDS: PIPERACILLIN /TAZOBACTAM 2.25 G in IV D5W 50 ML IV SCH ×3 (00:55→18:12)
[2020-09-14] MEDS: PHENYLEPHRINE 50 MG in IV NS 0.9% 245 ML IV PRN ×6 (01:21→23:47)
--- NOTE | 2020-09-14 01:49 | NUR ---
ICU/INTERVENTION SPECIALIST PT IS HAVING JUGULAR VEIN DISTENTION, NOTIFED THE CHARGE NURSE WHO GOT AN ORDER FOR LASIX 40MG IVP X 1 NOW.
--- NOTE | 2020-09-14 01:50 | NUR ---
ICU/LOCAL COMPANY TANKER DRIVER PT IS ALSO S/P 2 UNITS OF FFP, AND A HD PT. POSSIBLE FLUID OVER LOAD
[2020-09-14] MEDS ORDERED: FUROSEMIDE 40 MG/4 ML VIAL IV ONE (02:00)
[2020-09-14] MEDS: NOREPINEPHRINE 32 MG in IV NS 0.9% 218 ML IV PRN ×3 (02:58→17:36)
--- NOTE | 2020-09-14 03:34 | NUR ---
ICU/COMPUTER SCIENTIST PT IS NOT SATURATING WELL AND IS COMING IN AND OUT. PT IS ALSO THIRD SPACING, WEEPING FROM BOTH ARMS AND LEGS, WITH ABDOMENAIL THIRD SPACING CAN BE SEEN . STAT ABG WAS DONE. AWAIT FOR RESULTS.
--- NOTE | 2020-09-14 04:34 | NUR ---
RT NOTE PT INTUBATED WITH 7.0 @ 23 CM. CUFF INFLATED. STAT X RAY ORDERED FOR TUBE PLACEMENT. SX DONE, MODERATE SMALL THIN STANLEY SECRETIONS NOTED. ET TUBE SECURED VIA ANCHOR FAST. VENT PLUGGED TO RED OUTLET. ALARMS ON AND AUDIBLE. DEVONTE PEREZ @ BEDSIDE. WILL CONTINUE TO MONITOR CLOSELY. Addendum: 09/14/20 at 0633 by DESTIN CRUZ RT Amended: Links added.
[2020-09-14] MEDS ORDERED: PROPOFOL 100 ML IV PRN ×2 (05:00→09:00)
--- NOTE | 2020-09-14 05:00 | NUR ---
ICU/AIRFLIGHT ATTENDANTS SUPERVISOR ABG RESULTS WERE GIVEN TO CHARGE NURSE, NOT GOOD. @0425- ER DR CALLED TO INTUBATE 264 FOR ABNORMAL ABG RESULTS. @0435 PT IS INTUBATED BY DR HOOKER, WITH STAT XRAY, FOR ETT TUBE PLACEMENT. @0500 RESTRAINTS APPLIED.
[2020-09-14] MEDS ORDERED: PHENYLEPHRINE 10 MG/ML VIAL ONE (05:29)
[2020-09-14 05:34] LABS: ABG BASE EXCESS -6.7 mmol/L; ABG OXYGEN SATURATION 61.4 % (92.0-98.5); ABG PCO2 40.5 mmHg (35.0-45.0); ABG PH 7.295 (7.350-7.450); ABG PO2 35.3 mmHg (75.0-100.0); AaDO2 637.2 mmHg; COHb 2.4 % (0.5-1.5); MetHb 0.2 % (0.0-1.5); O2Hb 59.8 % (94.0-97.0); SITE, ABG Right Radial; VENT MODE, BG ST 18/8 100%
--- NOTE | 2020-09-14 05:51 | NUR ---
RT NOTE WITHDREW ET TUBE TO 18 CM POST X RAY RESULTS. RN CHRIS CLARKE.
--- NOTE | 2020-09-14 06:00 | NUR ---
ICU/DECATING MACHINE OPERATOR SEDATION WAS STARTED DUE TO PT STARTING TO WAKE UP. THIS WAS STARTED OUT AT 5MCG THEN TITRATE ACCORDINGLY.
[2020-09-14 06:06] LABS: ABG BASE EXCESS -9.1 mmol/L; ABG OXYGEN SATURATION 67.3 % (92.0-98.5); ABG PCO2 39.2 mmHg (35.0-45.0); ABG PO2 40.3 mmHg (75.0-100.0); AaDO2 633.5 mmHg; MetHb 0.8 % (0.0-1.5); O2Hb 65.4 % (94.0-97.0); SITE, ABG Right Radial; VENT MODE, BG AC18 VT500 100% PEEP+5
--- NOTE | 2020-09-14 06:15 | NUR ---
ICU/BROACH TROUBLE SHOOTER @0515-RADIOLOGY CALLED TO PULL BACK ETT TUBE 3CM DUE TO IT BEING IN THE RIGHT MAINSTEM BROCH, THIS WAS GIVEN TO RT WHO DID THIS AND THEN ORDERED ANOTHER STAT XRAY. @0555-RADIOLOGY CALLED TO PULL BACK ETT TUBE 2CM THIS WAS GIVEN TO RT WHO DID THIS. @0625-SATURATION OF THIS PT IS LOW AND NOT ACCURATE DUE TO THE THIRD SPACING. WILL CONTINUE TO MONITOR THIS PT.
--- NOTE | 2020-09-14 06:34 | NUR ---
RT NOTE WITHDREW ET TUBE TO 20 CM POST X RAY RESULTS. DEVONTE CLARKE. Addendum: 09/14/20 at 0635 by DESTIN CRUZ RT Amended: Links added.
--- NOTE | 2020-09-14 06:41 | NUR ---
RT NOTE WITHDREW ET TUBE TO 18 CM. DEVONTE PEREZ AWARE. Addendum: 09/14/20 at 0641 by DESTIN CRUZ RT Amended: Links added.
--- NOTE | 2020-09-14 06:44 | NUR ---
RT NOTE CHANGED RESPIRATORY RATE TO 24 PER SHERLY DAIGLE DNP POST ABG RESULTS.
--- NOTE | 2020-09-14 07:01 | NUR ---
ICU/INVENTORY CONTROL ASSISTANT CALLED FAMILY TO NOTIFY THEM ABOUT THE EVENTS THAT HAPPENED THROUGH THE NIGHT. THAT 2 DRIPS WERE ADDED FOR BLOOD PRESSURE AND THAT PT WAS INTUBATED DUE TO STATS NOT HOLDING AND THAT THE ABG WASN'T VERY GOOD. THEN ASKED THEN ABOUT CODE STATUS IF THEY WANT EVERYTHING TO BE DONE, SINCE PT IS STILL NOT HOLDING HER SATIATION. LINDA @[phone] THAT HE DID NOT WANT HIS MOM TO BE A FULL CODE AND HE WISHED HER TO BE A DNR. CHARGE NURSE HALINA GOT ON THE PHONE AND WAS WITNESS TO THIS. CODE STATUS WAS CHANGED.
[2020-09-14] MEDS: BLOOD SUGAR DIAGNOSTIC 1 EACH STRIP VI SCH ×4 (07:30→22:43)
--- NOTE | 2020-09-14 07:35 | NUR ---
ICU/ENERGY CROP FARMER FAMILY WAS ABLE TO TALK TO THE PT, WITH PHONE UP AGAINST THE EAR. SAID THEIR GOOD BYE.
--- NOTE | 2020-09-14 08:00 | NUR ---
RN NOTES RECEIVED PATIENT EET INTUBATED ON VENT SETTING. PATIENT HAS NO BP AT THIS TIME, INFUSING DIPRIVAN 30MCG, LEVOPHED 1MCG, NORSYNEPHRINE 3MCG, AND ADDED VASOPRESSIN 0.04, IV [id number]/2 NS AT 50 ML/HR ON RIGHT UPPER PICC LINE, AND HD CATHETER ON RIGHT GROIN PIG TAIL. UNABLE TO ADMINISTERED PO MEDICATION BECAUSE OF PER RACKET STRINGER PATIENT PRONE TO BLEED, AND ORDERED DIC PANEL. PATIENT DNR. HAS GENERALIZED EDEMA NAD GIOVANNI ALL OVER, ASSIST TURN AND REPOSTION Q 2 HR. SUBRAMANIAN DRAINING YELLOW OUTPUT. WILL MONITORING.
[2020-09-14 08:31] LABS: ABG BASE EXCESS -7.5 mmol/L; ABG OXYGEN SATURATION 84.3 % (92.0-98.5); ABG PCO2 28.7 mmHg (35.0-45.0); ABG PH 7.383 (7.350-7.450); ABG PO2 49.8 mmHg (75.0-100.0); AaDO2 634.5 mmHg; COHb 2.3 % (0.5-1.5); MetHb 0.3 % (0.0-1.5); O2Hb 82.1 % (94.0-97.0); PEEP,BG 5 cm H2O; SITE, ABG Right Radial; VT, ABG 500 mL
[2020-09-14] MEDS: MISOPROSTOL 100 MCG TABLET PO SCH ×4 (09:00→21:00)
[2020-09-14] MEDS: SODIUM BICARBONATE 650 MG TABLET PO SCH ×2 (09:00→21:00)
[2020-09-14 09:56] LABS: CALCIUM, SERUM 6.9 mg/dL (8.5-10.1); CARBON DIOXIDE 18 mmol/L (21-32); CHLORIDE 106 mmol/L (98-107); CREATININE 2.5 mg/dL (0.6-1.3); MAGNESIUM 1.7 mg/dL (1.8-2.4); PHOSPHORUS 4.6 mg/dL (2.5-4.9); POTASSIUM 3.5 mmol/L (3.5-5.1); SODIUM SERUM 142 mmol/L (136-145); UREA NITROGEN, BLOOD 48 mg/dL (7-18)
[2020-09-14 10:01] LABS: GLUCOSE 44 mg/dL (74-106)
[2020-09-14] MEDS: PROPOFOL 100 ML IV PRN ×3 (10:11→21:54)
[2020-09-14] MEDS: PANTOPRAZOLE 40 MG TABLET.DR PO SCH ×2 (10:29→21:00)
[2020-09-14] MEDS: SUCRALFATE 1 G/10 ML UDC PO SCH ×4 (10:29→21:57)
[2020-09-14 10:30] LABS: FERRITIN 2223 ng/mL (8-388); THYROID STIMULATING HORMONE 3.845 uIU/mL (0.358-3.74)
[2020-09-14] MEDS: VASOPRESSIN INJ 40 UNIT in IV NS 0.9% 38 ML IV PRN ×2 (10:35→17:35)
[2020-09-14] MEDS: HYDROCORTISONE SOD SUCCINATE 100 MG/2 ML VIAL IV SCH ×2 (10:51→21:55)
[2020-09-14] MEDS ORDERED: VANCOMYCIN 500 MG in IV D5W 100 ML IV PRN (11:00)
[2020-09-14 11:33] LABS: BASOPHILS # (AUTO) 0.1 /CMM (0.0-0.2); BASOPHILS % (AUTO) 0.8 % (0.0-2.0); EOSINOPHILS % (AUTO) 0.3 % (0.0-6.0); HEMATOCRIT 24 % (33-45); HEMOGLOBIN 7.9 g/dL (11.5-14.8); LYMPHOCYTES # (AUTO) 0.2 /CMM (0.8-4.8); LYMPHOCYTES % (AUTO) 2.5 % (20.0-44.0); MEAN CORPUSCULAR HGB CONC 33 g/dl (31.0-36.0); MEAN CORPUSCULAR VOLUME 95 fL (82-100); MONOCYTES % (AUTO) 0.1 % (2.0-12.0); NEUTROPHILS # (AUTO) 7.6 /CMM (1.8-8.9); NEUTROPHILS % (AUTO) 96.3 % (43.0-81.0); PLATELET COUNT (AUTO) 54 /CMM (150-450); WHITE BLOOD COUNT (AUTO) 7.9 K/uL (4.3-11.0)
[2020-09-14] MEDS ORDERED: VANCOMYCIN 0.75 GM in IV D5W 250 ML IV ONE (12:00)
--- NOTE | 2020-09-14 12:00 | NUR ---
RN NOTES UNABLE TO ADMINISTER PO MEDICATION BECAUSE PATIENT PRONE TO BLEED, AND NO BP UNABLE TO DO HD. MD GARRIDO AWARE OF. PATIENT DNR CODE.
[2020-09-14] MEDS: DEXTROSE 50%-WATER 50 ML DISP.SYRIN IV PRN ×3 (12:04→14:06)
[2020-09-14] MEDS ORDERED: SUCCINYLCHOLINE CHLORIDE 20 MG/ML VIAL IV ONE (13:25)
[2020-09-14] MEDS ORDERED: FEE EMEERGENCY 1 MIN EA MC ONE (13:25)
[2020-09-14] MEDS ORDERED: ETOMIDATE 2 MG/ML VIAL IV ONE (13:25)
--- NOTE | 2020-09-14 14:11 | NUR ---
RN NOTES BS RECHECKED 44 MG/DL ADMINISTERED 3RD DEXTROSE.
[2020-09-14] MEDS ORDERED: ACETAMINOPHEN 325 MG TABLET PO ONE (15:00)
[2020-09-14] MEDS ORDERED: diphenhydrAMINE HCL 50 MG/ML VIAL IV ONE (15:00)
--- NOTE | 2020-09-14 16:00 | NUR ---
RN NOTES GET KUNAL FROM LAB PATIENT GRAM STAIN BLOOD CULTURE GRAM NEGATIVE RODS.
[2020-09-14 17:03] LABS: D-DIMER 7.25 mg/L(FEU (0.17-0.50)
[2020-09-14] MEDS ORDERED: ACETAMINOPHEN 650 MG/SUPP.RECT RC ONE (18:30)
--- NOTE | 2020-09-14 18:50 | NUR ---
rn notes administered Tylenol rectal before blood transfusion
--- NOTE | 2020-09-14 19:00 | NUR ---
RN NOTES PM CARE DONE, PATIENT EET INTUBATED ON VENT SETTING. SET BLOOD TRANSFUSION SETTING, ADMINISTERED TYLENOL 650 RECTAL BEFORE BLOOD TRANSFUSION. BS-150 MG/DL, GET BP AT THIS TIME 117/69 . INFUSING DIPRIVAN 30MCG, LEVOPHED 1MCG, NORSYNEPHRINE 3MCG, AND ADDED VASOPRESSIN 0.04, IV [id number]/2 NS AT 50 ML/HR ON RIGHT UPPER PICC LINE, AND HD CATHETER ON RIGHT GROIN PIG TAIL. PATIENT DNR. HAS GENERALIZED EDEMA AND DRIPPING ALL OVER BODY. ASSIST TURN AND REPOSTION Q 2 HR. SUBRAMANIAN DRAINING YELLOW OUTPUT.ENDORSED ONCOMING NURSE FOLLOW PLAN OF CARE.
[2020-09-14 19:16] LABS: BAND % (MANUAL) 11 % (0.0-5.0); LYMPHOCYTES % (MANUAL) 4 % (16-48); MONOCYTES % (MANUAL) 4 % (0-11.0); MYELOCYTES % 2 % (0-0); NEUTROPHILS % (MANUAL) 79 (42-76)
--- NOTE | 2020-09-14 19:45 | NUR ---
RN OPENING NOTES RECEIVED PT IN BED, SEDATED. ON DIPRIVAN ON MECHANICAL VENTILATION. PT HAS ETT 03/25 AT LIP. WITH SETTINGS AC 24 TV 500 FIO2 100% PEEP OF 10. TOLERATING WELL. SATURATING AT 90% NO S/S OF RESP DISTRESS. BREATHING IS EVEN AND UNLABORED. ON CARDIAC MONITORING PT BASELINE NSR HR OF 98 AT THIS TIME. PT IS ON DIPRIVAN AT 30MCG/KG/MIN. PRASHANT AT 3MCG/KG/MIN LEVOPHED AT 1MCG/KG/MIN AND VASOTECH 0.04 IV SITES FLUSHED ASEPTICALLY. IVF D5 0.45% ns AT 50CC/HR NO S/S OF INFILTRATION NOTED. PT HAS SUBRAMANIAN DRAINING TO GRAVITY. URINE, FREE OF SEDIMENT. PT NPO DX AT THIS TIME. PT IS WEEPING, EXTREMELY EDEMATOUS. SAFETY MEASURES IN PLACE, HOB ELEVATED. SIDE RAILS UP X3 BED LOCKED IN LOWEST POSITION WILL CONT TO MONITOR.
--- NOTE | 2020-09-14 19:50 | NUR ---
PT REC'D ORALLY INTUBATED VIA ETT 7.0 SECURED @ 18 CM LIP [facility] WITH THE SETTINGS OF AC 24, 500,100%,PEEP 10. NO RESPIRATORY DISTRESS NOTED AT THIS TIME. SX DONE . CUFF INFLATED. ALARMS ARE SET AND AUDIBLE. VENT PLUGGED INTO RED OUTLET. AMBU BAG@ BEDSIDE. WILL CONTINUE TO MONITOR T/O THE SHIFT.
[2020-09-14] MEDS ORDERED: Magnesium 1GM/D5W 100ML PREMIX 100 ML IV SCH (20:30)
[2020-09-14] MEDS: MEROPENEM 500 MG in IV NS 0.9% 50 ML IV SCH (21:55)
--- NOTE | 2020-09-14 23:00 | NUR ---
PT RECEIVED 1 UNIT PRBCS ORDERED, NO TRANSFUSION REACTIONS NOTED
[2020-09-15] VITALS (40 sets, daily range): BP systolic 91–133; BP diastolic 39–103
[2020-09-15] MEDS: NOREPINEPHRINE 32 MG in IV NS 0.9% 218 ML IV PRN ×3 (00:58→17:32)
[2020-09-15] MEDS: IV D5/0.45 NACL 1,000 ML IV PRN (01:52)
[2020-09-15] MEDS: PROPOFOL 100 ML IV PRN ×3 (03:41→21:04)
[2020-09-15] MEDS: PHENYLEPHRINE 50 MG in IV NS 0.9% 245 ML IV PRN ×5 (03:44→21:59)
--- NOTE | 2020-09-15 05:10 | NUR ---
TALKED TO DAUGHTER IN LAW, YESENIA FOR UPDATE ON PT
[2020-09-15] MEDS: VASOPRESSIN INJ 40 UNIT in IV NS 0.9% 38 ML IV PRN ×2 (05:19→22:03)
[2020-09-15 05:21] LABS: BASOPHILS % (AUTO) 0.2 % (0.0-2.0); EOSINOPHILS % (AUTO) 0.2 % (0.0-6.0); HEMATOCRIT 28 % (33-45); LYMPHOCYTES # (AUTO) 0.3 /CMM (0.8-4.8); MEAN CORPUSCULAR HGB CONC 32 g/dl (31.0-36.0); MEAN CORPUSCULAR VOLUME 94 fL (82-100); MONOCYTES % (AUTO) 0.3 % (2.0-12.0); NEUTROPHILS # (AUTO) 8.7 /CMM (1.8-8.9); NEUTROPHILS % (AUTO) 96.3 % (43.0-81.0); RED BLOOD CELL COUNT(AUTO) 2.98 MIL/uL (4.0-5.2)
[2020-09-15 05:30] LABS: CALCIUM, SERUM 6.5 mg/dL (8.5-10.1); CARBON DIOXIDE 11 mmol/L (21-32); CHLORIDE 107 mmol/L (98-107); CREATININE 2.4 mg/dL (0.6-1.3); GLUCOSE 114 mg/dL (74-106); POTASSIUM 4.1 mmol/L (3.5-5.1); SODIUM SERUM 140 mmol/L (136-145); UREA NITROGEN, BLOOD 50 mg/dL (7-18)
[2020-09-15 05:35] LABS: PLATELET COUNT (AUTO) 44 /CMM (150-450)
[2020-09-15 05:46] LABS: D-DIMER 10.5 mg/L(FEU (0.17-0.50)
[2020-09-15 06:10] LABS: BAND % (MANUAL) 14 % (0.0-5.0); LYMPHOCYTES % (MANUAL) 5 % (16-48); METAMYELOCYTES % 1 % (0-0); MONOCYTES % (MANUAL) 2 % (0-11.0); NEUTROPHILS % (MANUAL) 78 (42-76)
--- NOTE | 2020-09-15 06:54 | NUR ---
RN CLOSING NOTES NO CHANGE IN PATIENT CONDITION. STILL EXTREMELY EDEMATOUS WITH 3RD SPACING/WEEPING. NO CHANGES ON VENT SETTINGS, PT TOLERATING SETTINS CALLED RT THROUGHOUT THE NIGHT DUE TO OCCASIONAL LEAK ALARM GOING OFF. CHARGE NURSE AWARE. NO SOB OR RESP DISTRESS AT THIS TIME. SATURATION 93-100% ALL NIGHT. PT IS STILL NSR HR OF 90. IV DRIPS DIPRIVAN 30MCG/KG/MIN LEVO AT 1MCG/KG/MIN, PRASHANT AT 3MCG/KG/MIN AND VASOTECH AT O.O4MCG. PT WAS CLEANED, WOUND CARE DONE, T/R TOLERATED. SAFETY MEASURES IN PLACE HOB ELEVATED. BED LOCKED IN LOWEST POSITION WITH BED ALARM ON. SIDE RAILS UP X3. WILL ENDORSE TO AM NURSE FOR CONT OF CARE
[2020-09-15] MEDS: SUCRALFATE 1 G/10 ML UDC PO SCH ×4 (07:30→21:53)
--- NOTE | 2020-09-15 07:30 | NUR ---
RN OPENING NOTE PT SEDATED IN BED ON DIPRIVAN AND MECHANICAL VENTILATION. PT HAS ETT 03/25 AT LIP. WITH SETTINGS AC 24 TV 500 FIO2 100% PEEP OF 10. NO SIGNS OF RESP DISTRESS OR SOB WITH EVEN AND UNLABORED BREATHING, SPO2 OF 98%. PT IS ON DIPRIVAN AT 30MCG/KG/MIN. PRASHANT AT 3MCG/KG/MIN LEVOPHED AT 1MCG/KG/MIN AND VASOTECH 0.04. ALL OTHER IV SITES FLUSHED AND PATENT. IVF D5 0.45% ns AT 50CC/HR NO S/S OF INFILTRATION NOTED. PT HAS SUBRAMANIAN DRAINING TO GRAVITY. PT HAS STRICT NPO ORDER. PT IS WEEPING, EXTREMELY EDEMATOUS. ALL PT SAFETY MEASURES IN PLACE, HOB ELEVATED. SIDE RAILS UP X3 BED LOCKED IN LOWEST POSITION. WILL CONTINUE TO MONITOR.
[2020-09-15 08:21] LABS: ABG BASE EXCESS -18.9 mmol/L; ABG OXYGEN SATURATION 98.4 % (92.0-98.5); ABG PCO2 33.7 mmHg (35.0-45.0); ABG PH 7.071 (7.350-7.450); ABG PO2 176.8 mmHg (75.0-100.0); AaDO2 502.5 mmHg; COHb 2.8 % (0.5-1.5); MetHb 1.1 % (0.0-1.5); O2Hb 94.6 % (94.0-97.0); PEEP,BG 10 cm H2O; SITE, ABG Left Radial; VT, ABG 500 mL
[2020-09-15] MEDS: DEXTROSE 50%-WATER 50 ML DISP.SYRIN IV PRN ×5 (08:55→11:02)
--- NOTE | 2020-09-15 08:57 | NUR ---
RT NOTE: ETT PUSHED IN 4 CM PER . PATIENT ETT WAS SECURED AT 18CM AND IS NOW AT 22CM MID LIP LINE. NURSE NOTIFIED.
[2020-09-15] MEDS: SODIUM BICARBONATE 650 MG TABLET PO SCH ×2 (09:00→21:00)
[2020-09-15] MEDS: PANTOPRAZOLE 40 MG TABLET.DR PO SCH ×2 (09:00→21:00)
[2020-09-15] MEDS: MISOPROSTOL 100 MCG TABLET PO SCH ×4 (09:00→21:00)
[2020-09-15] MEDS: BLOOD SUGAR DIAGNOSTIC 1 EACH STRIP VI SCH ×4 (09:17→22:00)
[2020-09-15] MEDS ORDERED: Sodium Bicarbonate 150 MEQ in IV D5W 1,000 ML IV PRN (10:30)
[2020-09-15] MEDS ORDERED: Sodium Bicarbonate 150 MEQ in IV D5W 1,000 ML IV SCH ×2 (10:32→11:00)
[2020-09-15] MEDS: HYDROCORTISONE SOD SUCCINATE 100 MG/2 ML VIAL IV SCH ×2 (11:04→21:52)
--- NOTE | 2020-09-15 11:14 | NUR ---
RN NOTE PT BLOOD GLUCOSE LESS THAN 10 AT 0840- 50% DEXTROSE GIVEN. 0910 BG AT 40, 50% DEXTROSE GIVEN. 0928 BG AT 46, 50% DEXTROSE GIVEN. 0955 BG AT LESS THAN 10, 50% DEXTROSE GIVEN. 1015 BG AT 149. 1045 BG AT 12, 50% DEXTROSE GIVEN. [address] RODRIGUEZ WAS INFORMED OF VALUES. ORDER FOR D10 PLACED Addendum: 09/15/20 at 2216 by RACHEL LOPEZ RN TOTAL OF FIVE 50% DEXTROSE SYRINGES ADMINISTERED. PT BG AT 1110 IS 226. WILL CONTINUE TO MONITOR
--- NOTE | 2020-09-15 11:45 | NUR ---
RN NOTE PT SWITCHED TO D5W AND [address] GARRIDO ORDER
[2020-09-15] MEDS ORDERED: IV 10% DEXTROSE 1,000 ML IV PRN (12:00)
[2020-09-15 13:06] LABS: *SPE ALPHA-1-GLOBULIN 0.5 g/dL (0.0-0.4); *SPE ALPHA-2-GLOBULIN 0.9 g/dL (0.4-1.0); *SPE BETA GLOBULIN 0.9 g/dL (0.7-1.3); *SPE GLOBULIN, TOTAL 3.1 g/dL (2.2-3.9); *SPE M-SPIKE 0.1 g/dL (Not Observed); *SPEGAMMA GLOBULIN 0.8 g/dL (0.4-1.8)
[2020-09-15] MEDS: MEROPENEM 500 MG in IV NS 0.9% 50 ML IV SCH ×2 (13:28→21:41)
[2020-09-15] MEDS ORDERED: VANCOMYCIN HCL 0.75 GM in IV D5W 250 ML IV ONE (18:00)
--- NOTE | 2020-09-15 19:00 | NUR ---
RN CLOSING NOTE NO CHANGES TO PT DURING SHIFT. PT STILL SEDATED IN BED ON DIPRIVAN AND MECHANICAL VENTILATION. PT ETT 03/25 AT LIP. WITH SETTINGS AC 24 TV 500 FIO2 100% PEEP OF 10. NO SIGNS OF RESP DISTRESS OR SOB WITH EVEN AND UNLABORED BREATHING, SPO2 OF 90%. PT IS ON DIPRIVAN AT 30MCG/KG/MIN. PRASHANT AT 3MCG/KG/MIN LEVOPHED AT 1MCG/KG/MIN AND VASOTECH 0.04. ALL OTHER IV SITES FLUSHED AND PATENT. IVF D5W WITH 3 AMPS BICARB AT 75CC/HR. PT HAS SUBRAMANIAN DRAINING TO GRAVITY WITH OUTPUT OF ONLY 10CC. ALL PT SAFETY MEASURES IN PLACE, HOB ELEVATED. SIDE RAILS UP X3 BED LOCKED IN LOWEST POSITION. WILL ENDORSE RAMY TO ONCOMING NURSE
[2020-09-15] MEDS: *INSULIN REGULAR(HUMULIN R)HUM 100 UNIT/ML VIAL SQ PRN (23:08)
[2020-09-16] VITALS (34 sets, daily range): BP systolic 42–141; BP diastolic 18–87
[2020-09-16] MEDS: PROPOFOL 100 ML IV PRN (01:36)
[2020-09-16] MEDS: NOREPINEPHRINE 32 MG in IV NS 0.9% 218 ML IV PRN ×2 (01:40→08:59)
[2020-09-16] MEDS ORDERED: Sodium Bicarbonate 150 MEQ in IV 10% DEXTROSE 1,000 ML IV SCH (02:20)
[2020-09-16] MEDS: PHENYLEPHRINE 50 MG in IV NS 0.9% 245 ML IV PRN ×2 (02:25→06:44)
[2020-09-16 04:50] LABS: BASOPHILS % (AUTO) 0.3 % (0.0-2.0); EOSINOPHILS % (AUTO) 0.7 % (0.0-6.0); HEMATOCRIT 25 % (33-45); HEMOGLOBIN 8.1 g/dL (11.5-14.8); LYMPHOCYTES # (AUTO) 0.2 /CMM (0.8-4.8); LYMPHOCYTES % (AUTO) 4.3 % (20.0-44.0); MEAN CORPUSCULAR HGB CONC 32 g/dl (31.0-36.0); MEAN CORPUSCULAR VOLUME 94 fL (82-100); MONOCYTES % (AUTO) 0.5 % (2.0-12.0); NEUTROPHILS # (AUTO) 5.3 /CMM (1.8-8.9); NEUTROPHILS % (AUTO) 94.2 % (43.0-81.0); RED BLOOD CELL COUNT(AUTO) 2.69 MIL/uL (4.0-5.2); WHITE BLOOD COUNT (AUTO) 5.6 K/uL (4.3-11.0)
[2020-09-16 04:56] LABS: CALCIUM, SERUM 6.4 mg/dL (8.5-10.1); CARBON DIOXIDE 11 mmol/L (21-32); CHLORIDE 104 mmol/L (98-107); CREATININE 2.4 mg/dL (0.6-1.3); GLUCOSE 178 mg/dL (74-106); POTASSIUM 3.5 mmol/L (3.5-5.1); SODIUM SERUM 139 mmol/L (136-145); UREA NITROGEN, BLOOD 49 mg/dL (7-18)
[2020-09-16 05:02] LABS: MAGNESIUM 1.5 mg/dL (1.8-2.4); PHOSPHORUS 6.1 mg/dL (2.5-4.9); VANCOMYCIN,RANDOM 13 ug/ml (18-26)
[2020-09-16 05:13] LABS: PLATELET COUNT (AUTO) 17 /CMM (150-450)
[2020-09-16 05:23] LABS: D-DIMER 11.11 mg/L(FEU (0.17-0.50)
[2020-09-16 05:54] LABS: BAND % (MANUAL) 4 % (0.0-5.0); LYMPHOCYTES % (MANUAL) 4 % (16-48); MONOCYTES % (MANUAL) 3 % (0-11.0); NEUTROPHILS % (MANUAL) 88 (42-76); REACTIVE LYMPHOCYTES 1 % (0-0)
--- NOTE | 2020-09-16 06:45 | NUR ---
FINANCIAL DATA ANALYST: ALL THREE PRESSORS REMAIN AT MAXIMUM DOSE RATE. TRIED TO TITRATE DOWN BUT BP STARTED TRENDING DOWN BELOW NORMAL LIMIT. OFF DIPRIVAN AT THIS TIME. ETT PULLED OUT 3CM NOW AT 19CM AT THE LIP, CXR TAKEN AWAITING PLACEMENT CONFIRMATION. RELAYED CRITICAL PLATELET LEVEL TO DNP DIRECTOR OF ACQUISITIONS WT ORDER TO GIVE 1 UNIT PLATELET. 02 SAT WT NO GOOD WAVEFORM THROUGHOUT THE SHIFT DUE TO VERY POOR PERFUSION. UNABLE TO APPRECIATE TEMPERATURE DURING START OF SHIFT. CORE TEMP. IN THE LOW 90s. ANDREZ HUGGER IN PLACE WT MINIMAL EFFECT. ALL NEEDS MET. WILL ENDORSE TO DAY SHIFT FOR CONTINUITY OF CARE.
[2020-09-16] MEDS: BLOOD SUGAR DIAGNOSTIC 1 EACH STRIP VI SCH (07:41)
[2020-09-16] MEDS: HYDROCORTISONE SOD SUCCINATE 100 MG/2 ML VIAL IV SCH (08:38)
[2020-09-16] MEDS: PANTOPRAZOLE 40 MG TABLET.DR PO SCH (08:38)
[2020-09-16] MEDS: SUCRALFATE 1 G/10 ML UDC PO SCH (08:38)
[2020-09-16] MEDS: SODIUM BICARBONATE 650 MG TABLET PO SCH (08:38)
[2020-09-16] MEDS: MEROPENEM 500 MG in IV NS 0.9% 50 ML IV SCH (08:57)
[2020-09-16] MEDS: MISOPROSTOL 100 MCG TABLET PO SCH (08:57)
[2020-09-16] MEDS ORDERED: DC PROPOFOL WHEN EXTUBATED XX PRN (10:30)
[2020-09-16] MEDS ORDERED: HYDROMORPHONE 1 MG/1 ML DISP.SYRIN IV PRN (10:30)
--- NOTE | 2020-09-16 10:36 | NUR ---
RN NOTE 0715: Received patient obtunded. With ETT to vent, no respiratory distress noted at this time. On Levo, [place] and Vaso drips max dose. Off sedation, remained obtunded. Noted with weeping all over. INDER PICC and Right fem HD cath intact. Briscoe cath intact. 1000: Spoke with son Chad and Karine daughter in law [phone], and updated re: patient condition. Family decided to place patient on comfort measures only. S/E by Dr. Angel with order of Dilaudid 1mg IVP q1 PRN. Made Dr. Dang aware, with order to change code status to comfort measures only, terminal extubation 30min afrter giving Dilaudid 1 IVP and DC pressors.
--- NOTE | 2020-09-16 11:15 | NUR ---
RN NOTE 0715: Received patient with ETT to vent, tolerated settings. On sedation Dip at 40, remained sedated. INDER PICC intact. Briscoe cath intct, noted with clear yellow urine drained to BSD. OGT intact, clamped. On cooling blanket, temp 99.5. Isolation precaution for Covid, maintained and observed. 1030: S/E by Dr. Angel, aware for the ABG, titrate FIO2 above 90% perr MD, will keep on 60%. Informed MD, patient wakes up at times when tried lowering Dip to 30 but noted with mild agitation, placed back to 40mcg. 1115: S/E by Dr. Sales, agreed for the dietary rec to start TF. signed work related paper of the patient.
--- NOTE | 2020-09-16 11:58 | NUR ---
RT NOTE: TERMINAL EXTUBATION DONE PER MD ORDER. NURSE (LONA) AWARE.
--- NOTE | 2020-09-16 12:42 | NUR ---
RN NOTE 1158: Terminally extubated as ordered. 1205: Asystole on the monitor. No more VS appreciated, no pulse, no pupil reaction, no heartbeat appreciated upon auscultation. 1209: Made Dr. Dang aware, called [facility], spoke with Cee case # [id number], and said to may release the body. 1220: Spoke with family and questions and concerns were answered. 1240: Called [facility] [facility] [employer] [phone] for Mortuary of choice.
--- NOTE | 2020-09-16 12:50 | NUR ---
RN NOTE Per mortuary, [place] [facility] [place]ings gave to patient's family.
--- NOTE | 2020-09-16 14:07 | NUR ---
RN NOTE 1320: Post mortem care done with MERCHANDISING ASSISTANT. 1350: Body placed to morgue(trailer) accompanied by Security and me.
== END 2020-09-16 12:05 | disposition expired | DRG 871 ==
LOC: ER 15:25 → TRANSITION 18:45 → TELE 08-31 16:59 → MED 09-02 11:18 → ICU 09-12 12:22
PROVIDERS: ADMIT Internal Medicine
PROC: 06HY33Z Insertion of Infusion Device into Lower Vein, Percutaneous Approach (ICD-10-PCS; principal; 2020-08-31)
PROC: 06HY33Z Insertion of Infusion Device into Lower Vein, Percutaneous Approach (ICD-10-PCS; 2020-08-31)
PROC: 5A1D70Z Performance of Urinary Filtration, Intermittent, Less than 6 Hours Per Day (ICD-10-PCS; 2020-09-01)
PROC: 30233N1 Transfusion of Nonautologous Red Blood Cells into Peripheral Vein, Percutaneous Approach (ICD-10-PCS; 2020-09-02)
PROC: 06H03DZ Insertion of Intraluminal Device into Inferior Vena Cava, Percutaneous Approach (ICD-10-PCS; 2020-09-08)
PROC: 0DB68ZX Excision of Stomach, Via Natural or Artificial Opening Endoscopic, Diagnostic (ICD-10-PCS; 2020-09-10)
PROC: 30233L1 Transfusion of Nonautologous Fresh Plasma into Peripheral Vein, Percutaneous Approach (ICD-10-PCS; 2020-09-13)
PROC: 02HV33Z Insertion of Infusion Device into Superior Vena Cava, Percutaneous Approach (ICD-10-PCS; 2020-09-13)
PROC: B548ZZA Ultrasonography of Superior Vena Cava, Guidance (ICD-10-PCS; 2020-09-13)
PROC: 0BH18EZ Insertion of Endotracheal Airway into Trachea, Via Natural or Artificial Opening Endoscopic (ICD-10-PCS; 2020-09-14)
PROC: 5A1945Z Respiratory Ventilation, 24-96 Consecutive Hours (ICD-10-PCS; 2020-09-14)
PROC: 05HY33Z Insertion of Infusion Device into Upper Vein, Percutaneous Approach (ICD-10-PCS; 2020-09-16)
DX: A41.9 Sepsis, unspecified organism (principal); J96.01 Acute respiratory failure with hypoxia; I21.A1 Myocardial infarction type 2; N17.0 Acute kidney failure with tubular necrosis; G93.41 Metabolic encephalopathy; I50.33 Acute on chronic diastolic (congestive) heart failure; K25.4 Chronic or unspecified gastric ulcer with hemorrhage; G92 Toxic encephalopathy; R65.21 Severe sepsis with septic shock; J69.0 Pneumonitis due to inhalation of food and vomit; D65 Disseminated intravascular coagulation [defibrination syndrome]; N18.6 End stage renal disease; I13.0 Hypertensive heart and chronic kidney disease with heart failure and stage 1 through stage 4 chronic kidney disease, or unspecified chronic kidney disease; D68.59 Other primary thrombophilia; I82.402 Acute embolism and thrombosis of unspecified deep veins of left lower extremity; E87.2 Acidosis; D61.818 Other pancytopenia; E46 Unspecified protein-calorie malnutrition; I13.2 Hypertensive heart and chronic kidney disease with heart failure and with stage 5 chronic kidney disease, or end stage renal disease; I96 Gangrene, not elsewhere classified; Z51.5 Encounter for palliative care; Z66 Do not resuscitate; N18.9 Chronic kidney disease, unspecified; K21.00 Gastro-esophageal reflux disease with esophagitis, without bleeding; K29.70 Gastritis, unspecified, without bleeding; Z20.822 Contact with and (suspected) exposure to COVID-19; K26.9 Duodenal ulcer, unspecified as acute or chronic, without hemorrhage or perforation; Z79.01 Long term (current) use of anticoagulants; Z90.710 Acquired absence of both cervix and uterus; Z88.2 Allergy status to sulfonamides; Z79.899 Other long term (current) drug therapy; D50.9 Iron deficiency anemia, unspecified; E16.2 Hypoglycemia, unspecified; E66.01 Morbid (severe) obesity due to excess calories; E83.42 Hypomagnesemia; E83.51 Hypocalcemia; E87.5 Hyperkalemia; Z68.36 Body mass index [BMI] 36.0-36.9, adult; D63.8 Anemia in other chronic diseases classified elsewhere; F03.90 Unspecified dementia, unspecified severity, without behavioral disturbance, psychotic disturbance, mood disturbance, and anxiety; E88.9 Metabolic disorder, unspecified; I70.0 Atherosclerosis of aorta; M20.41 Other hammer toe(s) (acquired), right foot; M20.42 Other hammer toe(s) (acquired), left foot; M21.612 Bunion of left foot; M89.9 Disorder of bone, unspecified; N28.89 Other specified disorders of kidney and ureter; Y95 Nosocomial condition; L89.626 Pressure-induced deep tissue damage of left heel; R57.1 Hypovolemic shock; N05.9 Unspecified nephritic syndrome with unspecified morphologic changes
CPT/HCPCS: 31720; 36415; 36600; 71045-TC; 74018; 76770-TC; 78582; 80048-TC; 80053-TC; 80061-TC; 80076-TC; 80202-TC; 81001; 82272-TC; 82533; 82728-TC; 82784; 82803-TC; 82962-TC; 83520; 83540-TC; 83605-TC; 83735-TC; 83880; 84100-TC; 84155; 84165; 84443-TC; 84484-TC; 85025-TC; 85378-TC; 85396; 85610-TC; 85652-TC; 85730-TC; 86225; 86235; 86256; 86334; 86704; 86706; 86803; 86850-TC; 87040-TC; 87045-TC; 87081-TC; 87186-TC; 87340; 88305-TC; 88313-TC; 88342; 89055; 90935-TC; 93307-TC; 93970-TC; 94003-TC; 94660; 94762-TC; 94799-TC; 97110-TC; 97112-TC; 97530-TC; 99082-TC; A4216; A4217; A6253; A6403; A9540; A9567; C1750; C1751; C1769; C1880; C9803; G0378; J0330; J0456; J0690; J0696; J0885; J1170; J1200; J1644; J1720; J1815; J1940; J2185; J2370; J2543; J2704; J3370; J3430; J3475; J3490; J7030; J7040; J7050; J7060; J7070; P9016-BL; P9017-BL; P9047; Q9966; U0003